=== PATIENT | male | born 1955 ===

== ENCOUNTER 2020-01-12 09:43 | Outpatient (REF) | payer OTHER, SELFPAY ==
[2020-01-12 12:26] LABS: Prostate Specific Antigen Scr 0.86 ng/mL (<0.05-4.0); TSH reflex Free T4 2.54 mIU/mL (0.32-4.0)
[2020-01-12 12:28] LABS: Anion Gap 12 (12-20); Blood Urea Nitrogen 18 mg/dL (9-16); Calcium 9.4 mg/dL (8.4-10.2); Carbon Dioxide 29 mmol/L (22-29); Chloride 102 mmol/L (96-108); Cholesterol 156 mg/dL; Estimated Glomerular Filt Rate > 60; Glucose Fasting 85 mg/dL (60-99); HDL Cholesterol 32 mg/dL; LDL Cholesterol Calculated 95 mg/dl; Potassium 3.9 mmol/l (3.3-5.1); Sodium 139 mmol/L (135-145); Triglycerides 146 mg/dL
== END 2020-01-12 09:44 | disposition home or self-care (01) ==
LOC: HO.HMGCLDS 09:43
PROVIDERS: PCP Nurse Practitioner Family; Visit Provider Nurse Practitioner Family
DX: Z00.00 Encounter for general adult medical examination without abnormal findings (principal); Z12.5 Encounter for screening for malignant neoplasm of prostate
CPT/HCPCS: 80048; 80061; 84153; 84443

== ENCOUNTER → 2020-03-30 10:17 | Outpatient (BNV) | payer MEDICARE, OTHER, SELFPAY | PROVIDERS: PCP Nurse Practitioner Family; Visit Provider Internal Medicine | DX: I26.99 Other pulmonary embolism without acute cor pulmonale (principal) | CPT/HCPCS: 99213; 99214 ==

== ENCOUNTER 2020-04-05 07:52 | Day surgery (SDC) | payer OTHER, SELFPAY ==
[2020-03-30 12:47] VITALS: BMI 38.0
--- NOTE | 2020-04-04 09:34 | P.CONAN_ITS ---
Documented by User: Melita Colorado 04/04/20 12:15 HPI - Anesthesia Eval Consult details Narrative: 64yo M for Colonoscopy Eliquis for h/o PE/CVA PMFSH Past Medical History Medical History Bilateral pulmonary embolism (~05/2019) CVA (cerebral vascular accident) Erectile dysfunction HTN (hypertension) Hyperlipidemia GERARDO (obstructive sleep apnea) Family History Family History Father No problems noted. Mother Afib CAD (coronary artery disease) Surgical History Surgical History H/O colonoscopy History of umbilical hernia repair Hx of tonsillectomy Social History Social History Alcohol intake: current Alcohol intake frequency: a few times a week Smoking Status: Never smoker Second Hand Smoke Exposure: No Use of substances other than those prescribed or required for medical reasons: No Advance Directives: No Advance Directives Information Provided: No Advance Directives on File: No Meds Allergies Allergy/AdvReac Type Severity Reaction Status Date / Time seasonal Allergy Unknown Uncoded 04/04/20 10:02 Home Medications Medication Instructions Recorded Confirmed Type amlodipine 5 mg tablet 5 mg PO DAILY 01/12/20 04/05/20 History fenofibrate micronized 134 mg 134 mg PO DAILY 01/12/20 03/30/20 History capsule lisinopril 40 mg tablet 40 mg PO DAILY 01/12/20 03/30/20 History Exam Exam Date and Time: April 04, 2020 0934 Height,Weight and Vital Signs: Height 5 ft 11 in Weight 123.831 kg Pertinent Lab Results Pertinent Lab Results: Laboratory Tests 12/23/19 01/12/20 09:20 09:50 WBC 6.6 Hgb 14.4 Hct 43.3 Plt Count 219 Sodium 139 Potassium 3.9 Chloride 102 Carbon Dioxide 29 BUN 18 H Creatinine 1.20 Narrative Narrative: EKG 05/2019: NSR @81 ECHO 05/2019: LVEF 60-65%, mild TR Assessment and Plan Assessment Anesthesia Assessment: Chart Reviewed Documented by User: Domingo Valderrama 04/05/20 08:15 [facility] Past Medical History Medical History Bilateral pulmonary embolism (~05/2019) CVA (cerebral vascular accident) Erectile dysfunction HTN (hypertension) Hyperlipidemia GERARDO (obstructive sleep apnea) Family History Family History Father No problems noted. Mother Afib CAD (coronary artery disease) Surgical History Surgical History H/O colonoscopy History of umbilical hernia repair Hx of tonsillectomy Social History Social History Alcohol intake: current Alcohol intake frequency: a few times a week Smoking Status: Never smoker Second Hand Smoke Exposure: No Use of substances other than those prescribed or required for medical reasons: No Advance Directives: No Advance Directives Information Provided: No Advance Directives on File: No Meds Allergies Allergy/AdvReac Type Severity Reaction Status Date / Time seasonal Allergy Unknown Uncoded 04/04/20 10:02 Home Medications Medication Instructions Recorded Confirmed Type amlodipine 5 mg tablet 5 mg PO DAILY 01/12/20 04/05/20 History fenofibrate micronized 134 mg 134 mg PO DAILY 01/12/20 03/30/20 History capsule lisinopril 40 mg tablet 40 mg PO DAILY 01/12/20 03/30/20 History Exam Airway Mallampati Class: III TM Dist: >3cm Neck ROM: Full
[2020-04-04 10:00] VITALS: BMI 38.0
[2020-04-05 08:05] VITALS: BP 121/78; PULSE 69; RESP 16; TEMP 36.6; O2SAT 96
[2020-04-05] MEDS: Lactated Ringers 1,000 ML 100 ML IVCONT (08:17)
[2020-04-05] MEDS: Sodium Phosphate,Mono-Dibasic 133 ML ENEMA PR (08:24)
--- NOTE | 2020-04-05 08:28 | PC.NURSE ---
patient recevied a fleet enema laying on his left side. richy well. yellow output after fleet.
--- NOTE | 2020-04-05 08:56 | MHC.SHP ---
Pre-Procedural Eval Section A The patient is an INPATIENT: No Changes since office visit: Yes Cold of Flu in the past 2 weeks, Yes New Medical Problems, Yes Changes in Medication and Yes Patient answered all questions The History & Physical has been completed within 30 days and I have reviewed it.: Yes Section B Chief Complaint: screening Allergies: Allergies Allergy/AdvReac Type Severity Reaction Status Date / Time seasonal Allergy Unknown Uncoded 04/04/20 10:02 Plan I have reviewed the history and physical and performed a pertinent physical examination on my patient. No changes have occurred unless specified.
[2020-04-05 09:26] VITALS: BP 107/64; PULSE 78; RESP 14; TEMP 36.3; O2SAT 97
--- NOTE | 2020-04-05 09:32 | PM.OP ---
Brief Operative Note Date of Service: 04/05/20 Pre-op diagnosis: FH colon polyps Post-op diagnosis: same Procedure: colonoscopy Surgeon: Phil Sullivan Anesthesia: MAC Estimated blood loss (mL): 0 Pathology: none sent Condition: stable Disposition: PACU
[2020-04-05 09:41] VITALS: BP 101/65; PULSE 71; RESP 18; TEMP 36.2; O2SAT 96
--- NOTE | 2020-04-05 09:52 | OP_ITS ---
SURGEON: Phil Sullivan MD INDICATIONS: Colon cancer screening and family history of colon polyps. PREOPERATIVE DIAGNOSIS: POSTOPERATIVE DIAGNOSIS: PROCEDURE PERFORMED: Colonoscopy to the terminal ileum. ESTIMATED BLOOD LOSS: COMPLICATIONS: ANESTHESIA: ASSISTANTS: SPECIMENS: MEDICATIONS: Monitored anesthesia care. DESCRIPTION OF PROCEDURE: History and physical performed. The risks and benefits of the procedure were explained to the patient. Informed consent was obtained. The patient was placed in the left lateral decubitus position. A digital rectal exam was performed and was found to be normal. The Olympus pediatric video colonoscope was introduced into the rectum and advanced to the cecum without difficulty. The cecum was identified by transillumination, palpation, and identification of ileocecal valve. Examination was performed and the scope was removed. He tolerated the procedure well and was returned to recovery area in stable condition. FINDINGS: The terminal ileum was normal. The visualized colonic mucosa was normal. The quality of prep was good. No polyps were identified. There was mild sigmoid diverticulosis. Retroflexed examination showed small internal hemorrhoids. IMPRESSION: Negative screening colonoscopy. RECOMMENDATION: 1. Follow up as needed. 2. Repeat colonoscopy is recommended in 5 years because of family history. MD STEVENSON [place]/LYNDA / [phone]
--- NOTE | 2020-04-05 10:02 | HO.POSTANES ---
Post Anesthesia Evaluation Post Anesthesia Evaluation Vital Signs: Vital Signs Temp Pulse Resp BP Pulse Ox 04/05/20 09:41 97.2 F 71 18 101/65 96 04/05/20 09:26 97.4 F 78 14 107/64 97 04/05/20 08:05 97.9 F 69 16 121/78 96 Anesthesia: Monitored Mental Status: Awake Pain Control: Satisfactory Nausea/Vomiting: None Hydration: Adequate Anesthesia-Related Issues: No Anes. Related Issues
== END 2020-04-05 10:00 | disposition home or self-care (01) ==
PROVIDERS: PCP Nurse Practitioner Family; Visit Provider Internal Medicine Gastroenterology
PROC: 0DJD8ZZ Inspection of Lower Intestinal Tract, Via Natural or Artificial Opening Endoscopic (ICD-10-PCS; CPT 45378; principal; 2020-04-05 08:50)
DX: Z12.11 Encounter for screening for malignant neoplasm of colon (principal); Z83.71 Family history of colonic polyps; K57.30 Diverticulosis of large intestine without perforation or abscess without bleeding; K64.8 Other hemorrhoids; I10 Essential (primary) hypertension; I26.99 Other pulmonary embolism without acute cor pulmonale; G47.33 Obstructive sleep apnea (adult) (pediatric); Z79.01 Long term (current) use of anticoagulants; Z86.73 Personal history of transient ischemic attack (TIA), and cerebral infarction without residual deficits
CPT/HCPCS: 45378

== ENCOUNTER 2020-07-13 08:34 | Outpatient (REF) | payer OTHER, SELFPAY ==
[2020-07-13 12:08] LABS: Alanine Aminotransferase 32 U/L (0-40); Albumin Level 4.2 g/dL (3.5-5.0); Alkaline Phosphatase 32 U/L (39-117); Anion Gap 14 (12-20); Aspartate Amino Transferase 25 U/L (5-37); Bilirubin Total 0.8 mg/dL (0.0-1.0); Blood Urea Nitrogen 18 mg/dL (9-16); Calcium 9.3 mg/dL (8.4-10.2); Carbon Dioxide 28 mmol/L (22-29); Chloride 102 mmol/L (96-108); Cholesterol 156 mg/dL; Estimated Glomerular Filt Rate > 60; Glucose Fasting 87 mg/dL (60-99); HDL Cholesterol 28 mg/dL; LDL Cholesterol Calculated 93 mg/dl; Potassium 3.7 mmol/L (3.3-5.1); Sodium 140 mmol/L (135-145); Total Protein 6.6 g/dL (6.5-8.0); Triglycerides 178 mg/dL
[2020-07-13 12:30] LABS: TSH reflex Free T4 1.93 uIU/mL (0.32-4.0)
== END 2020-07-13 08:35 | disposition home or self-care (01) ==
LOC: HO.HMGCLDS 08:34
PROVIDERS: PCP Nurse Practitioner Family; Visit Provider Nurse Practitioner Family
DX: E78.5 Hyperlipidemia, unspecified (principal); I10 Essential (primary) hypertension
CPT/HCPCS: 36415; 80053; 80061; 84443

== ENCOUNTER 2021-01-10 09:15 | Outpatient (REF) | payer OTHER, SELFPAY ==
[2021-01-10 12:05] LABS: Appearance Urine CLEAR; Color Urine YELLOW; Glucose Urine UA NEG (NEG); Leukocyte Esterase Urine NEG (NEG); Nitrite Urine NEG (NEG); Specific Gravity - Urine 1.015 (1.005-1.025); Urine Blood NEG (NEG); Urine Ketones NEG (NEG); Urine Protein NEG (NEG-TRACE)
[2021-01-10 12:23] LABS: Prostate Specific Antigen Scr 1.04 ng/mL (<0.05-4.0); TSH reflex Free T4 3.88 uIU/mL (0.32-4.0)
[2021-01-10 12:29] LABS: Alanine Aminotransferase 32 U/L (0-40); Albumin Level 4.3 g/dL (3.5-5.0); Alkaline Phosphatase 32 U/L (39-117); Anion Gap 11 (12-20); Aspartate Amino Transferase 22 U/L (5-37); Bilirubin Total 0.6 mg/dL (0.0-1.0); Blood Urea Nitrogen 18 mg/dL (9-16); Calcium 9.5 mg/dL (8.4-10.2); Carbon Dioxide 29 mmol/L (22-29); Chloride 105 mmol/L (96-108); Cholesterol 155 mg/dL; Estimated Glomerular Filt Rate 58; Glucose Fasting 89 mg/dL (60-99); HDL Cholesterol 29 mg/dL; LDL Cholesterol Calculated 99 mg/dl; Potassium 3.9 mmol/L (3.3-5.1); Sodium 141 mmol/L (135-145); Total Protein 6.7 g/dL (6.5-8.0); Triglycerides 137 mg/dL
== END 2021-01-10 09:16 | disposition home or self-care (01) ==
LOC: HO.HMGCLDS 09:15
PROVIDERS: PCP Nurse Practitioner Family; Visit Provider Nurse Practitioner Family
DX: Z00.00 Encounter for general adult medical examination without abnormal findings (principal); Z12.5 Encounter for screening for malignant neoplasm of prostate
CPT/HCPCS: 36415; 80053; 80061; 81003; 84153; 84443

== ENCOUNTER 2021-02-14 14:40 | Outpatient (REF) | payer OTHER, SELFPAY ==
--- NOTE | ~2021-02-14 | CT_ITS ---
EXAMINATION: CT ANGIOGRAM OF THE CHEST WITH AND WITHOUT CONTRAST (CT PULMONARY ANGIOGRAM FOR PE) CLINICAL INFORMATION: Reason for Exam elevated d dimer . History of pulmonary emboli. COMPARISON: Previous exam most recent May 2019 TECHNIQUE: Prior to contrast administration, noncontrast localization images were obtained. Subsequently, multidetector volumetric imaging was performed from the thoracic inlet to below the diaphragms following the administration of 65 mL Omnipaque 350 intravenous contrast. No contrast reaction reported Sagittal, coronal, and MIP oblique sagittal reformatted images were obtained on the CT workstation, uploaded to PACS, and reviewed. This CT examination was performed using dose optimization techniques as appropriate, variously including the following: *Automated exposure control *Adjustment of mA and/or kV according to patient size (this includes techniques or standardized protocols for targeted exams where dose is matched to indication/reason for exam; i.e. extremities or head) *Use of iterative reconstruction technique Total exam dose-length product 2 0 mGy-cm FINDINGS: QUALITY OF STUDY/CONTRAST BOLUS: Satisfactory. PULMONARY ARTERIES: No central or segmental pulmonary emboli. THORACIC AORTA: No aneurysm or dissection. LUNG: There is a 4 mm right lower lobe nodule axial image 360 series 11. This is not identified on previous chest CT. There multiple bilateral calcified nodules that are stable. The largest measures 4 mm axial image 390 series 11 in the left lower lobe. PLEURA: No pleural effusion or pneumothorax. MEDIASTINUM: Normal heart size. No pericardial effusion. No hilar or mediastinal lymphadenopathy. No evidence of septal bowing or right heart strain. CHEST WALL/AXILLA: No axillary or internal mammary lymphadenopathy. OSSEOUS STRUCTURES: No acute or suspicious osseous abnormality. UPPER ABDOMEN: There may be fatty infiltration of the liver. There is diverticulosis of the colon. No reflux of contrast into the hepatic veins to suggest elevated right heart pressures. CT/CT angio chest PE protocol IMPRESSION: No evidence of pulmonary embolism. Stable calcified left pulmonary nodules. 4 mm noncalcified right lower lobe nodule not Definitely seen on prior CTA January 2020. VTE: negative
[2021-02-14] MEDS: iohexoL 350 MG/ML 100 ML INFUS..BTL 65 ML IV (15:52)
== END 2021-02-14 14:41 | disposition home or self-care (01) ==
LOC: HO.CT 14:40
PROVIDERS: Visit Provider Internal Medicine
DX: I26.99 Other pulmonary embolism without acute cor pulmonale (principal)
CPT/HCPCS: 71275; Q9967

== ENCOUNTER 2021-07-11 09:31 | Outpatient (REF) | payer OTHER, SELFPAY ==
[2021-07-11 11:21] LABS: MANUAL DIFF FLAG NO
[2021-07-11 11:52] LABS: Basophils Absolute Auto 0.1 X10*3/uL (0.0-0.2); Basophils Percent Auto 0.8 % (0-2); Eosinophils Absolute Auto 0.2 X10*3/uL (0.0-0.4); Eosinophils Percent Auto 2.9 % (0-4); Hematocrit 42.1 % (42.0-52.0); Hemoglobin 13.8 g/dl (14.0-18.0); Imm Gran Abs Auto 0.04 X10*3/uL (0.00-0.03); Imm Gran Pct Auto 0.5 % (0.0-0.4); Lymphocytes Absolute Auto 1.7 X10*3/uL (1.2-4.9); Lymphocytes Percent Auto 23.2 % (20-40); Mean Corpuscular HGB Conc 32.8 g/dl (31.0-36.0); Mean Corpuscular Hemoglobin 28.7 pg (27.0-33.0); Mean Corpuscular Volume 87.5 fL (80.0-98.0); Mean Platelet Volume 12.3 fL (9.4-12.4); Monocytes Absolute Auto 0.7 X10*3/uL (0.1-1.2); Monocytes Percent Auto 9.1 % (2-11); Neutrophils Absolute Auto 4.8 x10*3/uL (2.0-8.3); Neutrophils Percent Auto 63.5 % (45-73); Platelet Count 217 X10*3/uL (160-400); Red Blood Count 4.81 X10*6/uL (4.60-5.80); Red Cell Distribution Width 12.9 % (11.0-16.0); White Blood Count 7.5 X10*3/uL (4.8-10.8)
[2021-07-11 12:08] LABS: Alanine Aminotransferase 31 U/L (0-40); Albumin Level 4.1 g/dL (3.5-5.0); Alkaline Phosphatase 30 U/L (39-117); Anion Gap 13 (12-20); Aspartate Amino Transferase 24 U/L (5-37); Bilirubin Total 0.6 mg/dL (0.0-1.0); Blood Urea Nitrogen 19 mg/dL (9-16); Calcium 9.5 mg/dL (8.4-10.2); Carbon Dioxide 25 mmol/L (22-29); Chloride 105 mmol/L (96-108); Cholesterol 148 mg/dL; Estimated Glomerular Filt Rate > 60; Glucose Fasting 92 mg/dL (60-99); HDL Cholesterol 30 mg/dL; LDL Cholesterol Calculated 97 mg/dl; Potassium 3.8 mmol/L (3.3-5.1); Sodium 139 mmol/L (135-145); Total Protein 6.7 g/dL (6.5-8.0); Triglycerides 106 mg/dL
[2021-07-11 12:12] LABS: Appearance Urine CLEAR; Color Urine YELLOW; Glucose Urine UA NEG (NEG); Leukocyte Esterase Urine NEG (NEG); Nitrite Urine NEG (NEG); PH 6.5 (5.0-8.0); Urine Blood NEG (NEG); Urine Ketones NEG (NEG); Urine Protein NEG (NEG-TRACE)
[2021-07-11 12:17] LABS: TSH reflex Free T4 2.93 uIU/mL (0.32-4.0)
== END 2021-07-11 09:32 | disposition home or self-care (01) ==
LOC: HO.HMGCLDS 09:31
PROVIDERS: Visit Provider Nurse Practitioner Family
DX: I10 Essential (primary) hypertension (principal)
CPT/HCPCS: 36415; 80053; 80061; 81003; 84443; 85025

== ENCOUNTER 2022-01-13 08:28 | Outpatient (REF) | payer MEDICARE, OTHER, SELFPAY ==
[2022-01-13 09:03] LABS: MANUAL DIFF FLAG NO
[2022-01-13 09:50] LABS: Basophils Absolute Auto 0.1 X10*3/uL (0.0-0.2); Basophils Percent Auto 1.1 % (0-2); Eosinophils Absolute Auto 0.2 X10*3/uL (0.0-0.4); Eosinophils Percent Auto 2.9 % (0-4); Hematocrit 42.3 % (42.0-52.0); Hemoglobin 13.8 g/dl (14.0-18.0); Imm Gran Abs Auto 0.02 X10*3/uL (0.00-0.03); Imm Gran Pct Auto 0.4 % (0.0-0.4); Lymphocytes Absolute Auto 1.8 X10*3/uL (1.2-4.9); Lymphocytes Percent Auto 31.5 % (20-40); Mean Corpuscular HGB Conc 32.6 g/dl (31.0-36.0); Mean Corpuscular Hemoglobin 28.9 pg (27.0-33.0); Mean Corpuscular Volume 88.5 fL (80.0-98.0); Mean Platelet Volume 12.1 fL (9.4-12.4); Monocytes Absolute Auto 0.5 X10*3/uL (0.1-1.2); Monocytes Percent Auto 9.5 % (2-11); Neutrophils Absolute Auto 3.1 x10*3/uL (2.0-8.3); Neutrophils Percent Auto 54.6 % (45-73); Platelet Count 220 X10*3/uL (160-400); Red Blood Count 4.78 X10*6/uL (4.60-5.80); Red Cell Distribution Width 12.6 % (11.0-16.0); White Blood Count 5.6 X10*3/uL (4.8-10.8)
[2022-01-13 10:22] LABS: Alanine Aminotransferase 31 U/L (0-40); Albumin Level 4.2 g/dL (3.5-5.0); Alkaline Phosphatase 34 U/L (39-117); Anion Gap 14 (12-20); Aspartate Amino Transferase 24 U/L (5-37); Bilirubin Total 0.7 mg/dL (0.0-1.0); Blood Urea Nitrogen 20 mg/dL (9-16); Calcium 9.6 mg/dL (8.4-10.2); Carbon Dioxide 27 mmol/L (22-29); Chloride 103 mmol/L (96-108); Cholesterol 151 mg/dL; Estimated Glomerular Filt Rate > 60; Glucose Fasting 89 mg/dL (60-99); HDL Cholesterol 33 mg/dL; LDL Cholesterol Calculated 96 mg/dl; Sodium 140 mmol/L (135-145); Total Protein 6.6 g/dL (6.5-8.0); Triglycerides 110 mg/dL
[2022-01-13 10:30] LABS: Appearance Urine Clear; Color Urine Yellow; Glucose Urine UA Negative (Negative); Leukocyte Esterase Urine Trace (Negative); Nitrite Urine Negative (Negative); PH 6.5 (5.0-9.0); UMIC TRIGGER UACC YES; Urine Blood Negative (Negative); Urine Ketones Negative (Negative); Urine Protein Negative (Neg-Trace)
[2022-01-13 10:37] LABS: Bacteria Urine None Seen (None Seen); Hyaline Casts Urine 0-2 /LPF (0-2); RBC Urine 0-2 /HPF (0-2); Squamous Epithelial Cell Urine 0-2 /HPF (0-2); WBC Urine 0-5 /HPF (0-5)
[2022-01-13 10:46] LABS: TSH reflex Free T4 1.96 uIU/mL (0.32-4.0)
[2022-01-13 10:56] LABS: Folate 17.9 ng/mL (> or = 4.0); Vitamin B12 517 pg/mL (200-900)
== END 2022-01-13 08:29 | disposition home or self-care (01) ==
LOC: HO.LAB 08:28
PROVIDERS: PCP Nurse Practitioner Family; Visit Provider Nurse Practitioner Family
DX: I10 Essential (primary) hypertension (principal); G57.90 Unspecified mononeuropathy of unspecified lower limb
CPT/HCPCS: 36415; 80053; 80061; 81001; 82607; 82746; 84207; 84443; 85025

== ENCOUNTER 2022-04-30 08:48 | Outpatient (REF) | payer MEDICARE, OTHER, SELFPAY ==
[2022-04-30 11:18] LABS: MANUAL DIFF FLAG NO
[2022-04-30 11:41] LABS: Basophils Absolute Auto 0.1 X10*3/uL (0.0-0.2); Basophils Percent Auto 1.1 % (0-2); Eosinophils Absolute Auto 0.2 X10*3/uL (0.0-0.4); Eosinophils Percent Auto 3.9 % (0-4); Hematocrit 41.6 % (42.0-52.0); Hemoglobin 13.7 g/dl (14.0-18.0); Imm Gran Abs Auto 0.04 X10*3/uL (0.00-0.03); Imm Gran Pct Auto 0.7 % (0.0-0.4); Lymphocytes Absolute Auto 1.6 X10*3/uL (1.2-4.9); Lymphocytes Percent Auto 29.1 % (20-40); Mean Corpuscular HGB Conc 32.9 g/dl (31.0-36.0); Mean Corpuscular Hemoglobin 28.8 pg (27.0-33.0); Mean Corpuscular Volume 87.6 fL (80.0-98.0); Mean Platelet Volume 12.4 fL (9.4-12.4); Monocytes Absolute Auto 0.5 X10*3/uL (0.1-1.2); Monocytes Percent Auto 8.9 % (2-11); Neutrophils Absolute Auto 3.2 x10*3/uL (2.0-8.3); Neutrophils Percent Auto 56.3 % (45-73); Platelet Count 202 X10*3/uL (160-400); Red Blood Count 4.75 X10*6/uL (4.60-5.80); Red Cell Distribution Width 12.8 % (11.0-16.0); White Blood Count 5.6 X10*3/uL (4.8-10.8)
[2022-04-30 12:05] LABS: Alanine Aminotransferase 26 U/L (0-40); Albumin Level 4.1 g/dL (3.5-5.0); Alkaline Phosphatase 32 U/L (39-117); Anion Gap 9 (12-20); Aspartate Amino Transferase 19 U/L (5-37); Bilirubin Total 0.7 mg/dL (0.0-1.0); Blood Urea Nitrogen 18 mg/dL (9-16); Calcium 9.3 mg/dL (8.4-10.2); Carbon Dioxide 31 mmol/L (22-29); Chloride 106 mmol/L (96-108); Cholesterol 157 mg/dL; Estimated Glomerular Filt Rate > 60; Glucose Fasting 91 mg/dL (60-99); HDL Cholesterol 29 mg/dL; LDL Cholesterol Calculated 100 mg/dl; Potassium 3.8 mmol/L (3.3-5.1); Sodium 142 mmol/L (135-145); Total Protein 6.3 g/dL (6.5-8.0); Triglycerides 140 mg/dL
[2022-04-30 12:13] LABS: Appearance Urine Clear; Color Urine Yellow; Glucose Urine UA Negative (Negative); Leukocyte Esterase Urine Trace (Negative); Nitrite Urine Negative (Negative); Specific Gravity - Urine 1.025 (1.005-1.025); UMIC TRIGGER UACC YES; Urine Blood Negative (Negative); Urine Ketones Negative (Negative); Urine Protein Negative (Neg-Trace)
[2022-04-30 12:18] LABS: Bacteria Urine None Seen (None Seen); Hyaline Casts Urine 0-2 /LPF (0-2); RBC Urine 0-2 /HPF (0-2); Squamous Epithelial Cell Urine 0-2 /HPF (0-2); WBC Urine 0-5 /HPF (0-5)
[2022-04-30 12:29] LABS: Prostate Specific Antigen Scr 0.81 ng/mL (<0.05-4.0); TSH reflex Free T4 2.83 uIU/mL (0.32-4.0); Vitamin D 25-OH Total 19.5 ng/mL (>30)
== END 2022-04-30 08:49 | disposition home or self-care (01) ==
LOC: HO.HMGCLDS 08:48
PROVIDERS: PCP Nurse Practitioner Family; Visit Provider Nurse Practitioner Family
DX: Z00.00 Encounter for general adult medical examination without abnormal findings (principal); Z12.5 Encounter for screening for malignant neoplasm of prostate
CPT/HCPCS: 36415; 80053; 80061; 81001; 81003; 82306; 84153; 84443; 85025

== ENCOUNTER 2022-10-29 08:44 | Outpatient (AMB) | payer MEDICARE, OTHER, SELFPAY ==
[2022-10-29 08:46] VITALS: BP 110/68; PULSE 70; O2SAT 97; BMI 38.9
--- NOTE | 2022-10-29 08:46 | A.OFFPC_ITS ---
Vital Signs 10/29/22 08:46 Height 5 ft 10 in Weight 271 lb BMI 38.9 BP 110/68 Blood Pressure Location Rt brachial Position Sitting Pulse 70 Pulse Source Pulse Oximeter Pulse Oximetry (%) 97 Oxygen Delivery Method Room Air Intake Visit Reasons: 6 month follow up HTN Allergies seasonal Allergy (Uncoded 10/29/22 08:48) Unknown Medication List - Last Reconciled 10/29/22 by ADI Carlin apixaban (Eliquis) 5 mg PO BID fenofibrate micronized 134 mg PO DAILY hydrochlorothiazide 50 mg PO QAM lisinopril 40 mg PO DAILY simvastatin 20 mg PO BEDTIME Tobacco use date assessed: 10/29/22 Fall risk assessment: No Falls in past year Last assessed Fall Risk: 10/29/22 Dental Screening Dental Screen Date: 10/29/22 Did you have a dental visit in the last 12 months?: Yes Did you have a dental problem in the last 6 months where you did not have access to dental care?: No Was dental information given to patient?: Patient has dentist HPI 6 month follow up HTN HPI Details HTN: Blood pressure is stable, managed with hydrochlorothiazide 50mg and lisinopril 40mg. Denies chest pain, shortness of breath, headache, dizziness, and blurred vision. Dyslipidemia: On fenofibrate 134mg and simvastatin 20mg. Hx of vitamin D deficiency. Will order labs. [facility] Medical History Bilateral pulmonary embolism (~05/2019) CVA (cerebral vascular accident) Erectile dysfunction HTN (hypertension) Hyperlipidemia GERARDO (obstructive sleep apnea) Surgical History H/O colonoscopy History of umbilical hernia repair Hx of tonsillectomy Family History Father No problems noted. 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 Dieudonne Alonso, Bev Vu, Julien Schofield and colleagues, with an educational luciano from [employer]. Review of Systems Const Reports as per HPI Physical exam (Primary Care) Vital Signs: Last Vital Signs Pulse 70 10/29/22 08:46 BP 110/68 10/29/22 08:46 Pulse Ox 97 10/29/22 08:46 Oxygen Delivery Method Room Air 10/29/22 08:46 BMI result Body Mass Index 38.9 Tobacco/Smoking Status: Tobacco use Status Tobacco use date assessed 10/29/22 10/29/22 08:52 Patient Tobacco Use Status Never used Tobacco 10/29/22 08:47 e-Cigarette/Vaping Use Never Used 10/29/22 08:47 Thrive Assessment: Date of Thrive Assessment Date Thrive assessed 04/30/22 10/29/22 08:47 Const General: cooperative Nutritional Appearance: obese Orientation/consciousness: patient oriented x3 Resp Effort & Inspection: normal respiratory effort Auscultation: clear to auscultation bilaterally Cardio Rate: regular rate Rhythm: regular rhythm Heart sounds: S1 normal heart sound present and S2 normal heart sound present Neuro General: patient oriented x3 Extrem Right lower extremity: edema (trace) Left lower extremity: edema (trace) Psych Appearance: grossly normal Mental Status: mental status grossly normal Speech and movement: Normal speech and movement present Affect: normal affect Attitude: cooperative Thought process: Normal thought process present Thought content: Normal thought content present Insight: Good insight present (Psych) Judgement: Good judgement present (Psych) Assessment and Plan Assessment & Plan (1) HTN (hypertension): Code(s): I10 - Essential (primary) hypertension Plan: Labs ordered (2) Hyperlipidemia: Code(s): E78.5 - Hyperlipidemia, unspecified Plan: Labs ordered (3) Vitamin D deficiency: Code(s): E55.9 - Vitamin D deficiency, unspecified Plan: Labs ordered Plan The patient agreed to the use of a medical office representative for this encounter. Scribed for ADI Alcaraz by Selma Atkins medical office representative, on 10/29/2022 at 09:05 EST. Orders: Orders Comprehensive Desdemona. Panel Fast Today E78.5 - Hyperlipidemia, unspecified, I10 - Essential (primary) hypertension Lipid Panel Today E78.5 - Hyperlipidemia, unspecified, I10 - Essential (primary) hypertension TSH reflex Free T4 Today E78.5 - Hyperlipidemia, unspecified, I10 - Essential (primary) hypertension Complete Blood Count Auto Diff Today E78.5 - Hyperlipidemia, unspecified, I10 - Essential (primary) hypertension UA CC w/rflx Micro + Cult Today E78.5 - Hyperlipidemia, unspecified, I10 - Essential (primary) hypertension Vitamin D 25-OH Total Today E55.9 - Vitamin D deficiency, unspecified Coding Level of Care Code Est Pt Level 3 (75490) Diagnoses HTN (hypertension) I10 Hyperlipidemia E78.5 Vitamin D deficiency E55.9
== END 2022-10-29 09:15 | disposition home or self-care (01) ==
PROVIDERS: Visit Provider Nurse Practitioner Family
DX: I10 Essential (primary) hypertension (principal); E78.5 Hyperlipidemia, unspecified; E55.9 Vitamin D deficiency, unspecified
CPT/HCPCS: 99213

== ENCOUNTER 2022-10-29 09:16 | Outpatient (REF) | payer MEDICARE, OTHER, SELFPAY ==
[2022-10-29 11:19] LABS: MANUAL DIFF FLAG NO
[2022-10-29 11:26] LABS: Appearance Urine Clear; Color Urine Yellow; Glucose Urine UA Negative (Negative); Leukocyte Esterase Urine Trace (Negative); Nitrite Urine Negative (Negative); PH 7.5 (5.0-9.0); Specific Gravity - Urine 1.025 (1.005-1.025); UMIC TRIGGER UACC YES; Urine Blood Negative (Negative); Urine Ketones Trace mg/dL (Negative); Urine Protein Negative (Neg-Trace)
[2022-10-29 11:29] LABS: Bacteria Urine None Seen (None Seen); Hyaline Casts Urine 0-2 /LPF (0-2); Squamous Epithelial Cell Urine 0-2 /HPF (0-2); WBC Urine 0-5 /HPF (0-5)
[2022-10-29 11:48] LABS: Basophils Absolute Auto 0.1 X10*3/uL (0.0-0.2); Basophils Percent Auto 1.2 % (0-2); Eosinophils Absolute Auto 0.2 X10*3/uL (0.0-0.4); Eosinophils Percent Auto 3.7 % (0-4); Hematocrit 42.5 % (42.0-52.0); Hemoglobin 13.9 g/dl (14.0-18.0); Imm Gran Abs Auto 0.05 X10*3/uL (0.00-0.03); Imm Gran Pct Auto 0.8 % (0.0-0.4); Lymphocytes Absolute Auto 1.9 X10*3/uL (1.2-4.9); Lymphocytes Percent Auto 28.8 % (20-40); Mean Corpuscular HGB Conc 32.7 g/dl (31.0-36.0); Mean Corpuscular Hemoglobin 28.7 pg (27.0-33.0); Mean Corpuscular Volume 87.6 fL (80.0-98.0); Mean Platelet Volume 12.1 fL (9.4-12.4); Monocytes Absolute Auto 0.6 X10*3/uL (0.1-1.2); Monocytes Percent Auto 8.7 % (2-11); Neutrophils Absolute Auto 3.7 x10*3/uL (2.0-8.3); Neutrophils Percent Auto 56.8 % (45-73); Platelet Count 227 X10*3/uL (160-400); Red Blood Count 4.85 X10*6/uL (4.60-5.80); Red Cell Distribution Width 12.7 % (11.0-16.0); White Blood Count 6.4 X10*3/uL (4.8-10.8)
[2022-10-29 12:43] LABS: Alanine Aminotransferase 25 U/L (0-40); Albumin Level 3.9 g/dL (3.5-5.0); Alkaline Phosphatase 32 U/L (39-117); Anion Gap 13 (12-20); Aspartate Amino Transferase 19 U/L (5-37); Bilirubin Total 0.5 mg/dL (0.0-1.0); Blood Urea Nitrogen 19 mg/dL (9-16); Calcium 9.5 mg/dL (8.4-10.2); Carbon Dioxide 24 mmol/L (22-29); Chloride 108 mmol/L (96-108); Cholesterol 161 mg/dL; Estimated Glomerular Filt Rate > 60; Glucose Fasting 92 mg/dL (60-99); HDL Cholesterol 28 mg/dL; LDL Cholesterol Calculated 102 mg/dl; Potassium 3.7 mmol/L (3.3-5.1); Sodium 141 mmol/L (135-145); Total Protein 6.7 g/dL (6.5-8.0); Triglycerides 158 mg/dL
[2022-10-29 12:44] LABS: TSH reflex Free T4 3.31 uIU/mL (0.32-4.0); Vitamin D 25-OH Total 51.7 ng/mL (>30)
== END 2022-10-29 09:17 | disposition home or self-care (01) ==
LOC: HO.HMGCLDS 09:16
PROVIDERS: PCP Nurse Practitioner Family; Visit Provider Nurse Practitioner Family
DX: I10 Essential (primary) hypertension (principal); E55.9 Vitamin D deficiency, unspecified; E78.5 Hyperlipidemia, unspecified
CPT/HCPCS: 36415; 80053; 80061; 81001; 82306; 84443; 85025

== ENCOUNTER 2022-11-02 09:28 | Outpatient (REF) | payer MEDICARE, OTHER, SELFPAY ==
[2022-11-02 11:25] LABS: Urine Cytology See Pathology rpt
[2022-11-02 12:01] LABS: Appearance Urine Clear; Color Urine Yellow; Glucose Urine UA Negative (Negative); Leukocyte Esterase Urine Negative (Negative); Nitrite Urine Negative (Negative); PH 7.5 (5.0-9.0); Specific Gravity - Urine <= 1.005 (1.005-1.025); Urine Blood Negative (Negative); Urine Ketones Negative (Negative); Urine Protein Negative (Neg-Trace)
== END 2022-11-02 09:29 | disposition home or self-care (01) ==
LOC: HO.HMGCLDS 09:28
PROVIDERS: PCP Nurse Practitioner Family; Visit Provider Nurse Practitioner Family
DX: I10 Essential (primary) hypertension (principal); R31.29 Other microscopic hematuria; E78.5 Hyperlipidemia, unspecified
CPT/HCPCS: 81003; 88112

== ENCOUNTER 2022-12-06 15:14 | Outpatient (REF) | payer MEDICARE, OTHER, SELFPAY ==
[2022-12-06 16:36] LABS: Urine Cytology See Pathology rpt
== END 2022-12-06 15:15 | disposition home or self-care (01) ==
LOC: HO.LAB 15:14
PROVIDERS: PCP Nurse Practitioner Family; Referring Provider Nurse Practitioner Family; Visit Provider Urology
DX: R82.89 Other abnormal findings on cytological and histological examination of urine (principal); R31.29 Other microscopic hematuria
CPT/HCPCS: 51798; 81003; 88112

== ENCOUNTER 2022-12-06 15:14 | Outpatient (AMB) | payer MEDICARE, OTHER, SELFPAY ==
--- NOTE | 2022-12-06 15:16 | A.OFFVIS_ITS ---
Intake Intake Visit Reasons: microscopic hematuria/findings on cytological Intake Note: NEW Patient presents today to established treatment for Microscopic Hematuria/Findings on Cytological: Meds- None Allergies to Antibiotic- No Known Allergies Blood Thinner- Eliquis Allergies seasonal Allergy (Uncoded 12/06/22 15:38) Unknown HPI HPI Comments History of Present Illness Details Walter is a 67-year-old male who presents today to the office to establish as a new patient for an evaluation of microscopic hematuria. 12/06/2022? He presents today for an evaluation of microscopic hematuria. PMH CVA, PE on eliquis, Htn, GERARDO. I reviewed the urine cytology report from 11/02/2022 which revealed a few degenerated atypical urothelial cells. He states that he is doing well. He denies any urinary symptoms at this time. He states that he gets up 1 time at night at night to urinate. Evaluation today?UA? leukocytes: negative; blood: negative. Plan: CT urogram was ordered. Follow-up office Cystoscopy in 6 weeks. [facility] Medical History Bilateral pulmonary embolism (~05/2019) CVA (cerebral vascular accident) Erectile dysfunction HTN (hypertension) Hyperlipidemia GERARDO (obstructive sleep apnea) Surgical History H/O colonoscopy History of umbilical hernia repair Hx of tonsillectomy Family History Father No problems noted. 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 Cognitive needs: No Hearing needs: No Vision needs: No Review of Systems Const All systems reviewed & are unremarkable except as noted in HPI and below Reports no additional complaints Eyes Reports no additional complaints ENT Reports no additional complaints Card Denies dyspnea Resp Denies cough and Denies dyspnea GI Reports no additional complaints Musc Reports no additional complaints Skin/Breast Denies rash and Denies unusual bruising Neuro Reports no additional complaints Psych Reports no additional complaints Endo Reports no additional complaints Teodoro/Lymph Reports no additional complaints Aller/Immun Reports no additional complaints Physical Exam Const General: healthy appearing, no acute distress and well developed Orientation/consciousness: patient oriented x3 HEENT Head: Yes normocephalic and Yes atraumatic Eyes Conjunctivae: conjunctivae normal Neck Neck: Yes normal visual inspection Chest Chest palpation & inspection: normal inspection of the chest Resp Effort & Inspection: normal respiratory effort Cardio Rate: regular rate GI Inspection: Yes normal to inspection Skin General skin exam: no rashes or lesions noted Neuro General: patient oriented x3 Extrem General: No pedal edema Psych Appearance: grossly normal Affect: normal affect Office Procedures Post Void Residual Post Residual Void Post Void Residual (PVR): 0 [id number] Void Residual by ultrasound Results AMB Urinalysis, Automated UA Leukoctes 0 Kulwant/uL Last Edit by Lurdes Leroy [facility] on 12/06/22 15:44 UA Nitrite Negative Last Edit by Lurdes Leroy [facility] on 12/06/22 15:44 UA Urobilinogen 0.2 mg/dL Last Edit by Lurdes Leroy [facility] on 12/06/22 15:4 4 UA Protein 0 mg/dL Last Edit by Lurdes Leroy [facility] on 12/06/22 15:44 UA pH 6.5 Last Edit by Lurdes Leroy [facility] on 12/06/22 15:44 UA Blood 0 Rosas/uL Last Edit by Lurdes Leroy [facility] on 12/06/22 15:44 UA Specific [place] 1.015 Last Edit by Lurdes Leroy [facility] on 12/06/22 15: 44 UA Ketone Negative Last Edit by Lurdes Leroy [facility] on 12/06/22 15:44 UA Bilirubin 0 mg/dL Last Edit by Lurdes Leroy [facility] on 12/06/22 15:44 UA Glucose 0 mg/dL Last Edit by Lurdes Leroy [facility] on 12/06/22 15:44 Results Reviewed Results Reviewed: Laboratory Last Values Urine pH (Auto) 6.5 12/06/22 15:40 Specific [place] (Auto) 1.015 12/06/22 15:40 Urine Protein (Auto) 0 mg/dL 12/06/22 15:40 Glucose (UA)(Auto) 0 mg/dL 12/06/22 15:40 Urine Ketones (Auto) Negative 12/06/22 15:40 Urine Blood (Auto) 0 Rosas/uL 12/06/22 15:40 Urine Nitrite (Auto) Negative 12/06/22 15:40 Urine Bilirubin (Auto) 0 mg/dL 12/06/22 15:40 Urine Urobilinogen (Auto) 0.2 mg/dL 12/06/22 15:40 Leukocyte Esterase (Auto) 0 Kulwant/uL 12/06/22 15:40 Diagnosis Urine: Few degenerated atypical urothelial cells. COMMENT: Examination of a monolayer preparation slide shows scattered benign urothelial cells, few benign squamous cells, and few groups of atypical but degenerated urothelial cells within increased nuclear:cytoplasmic ratios meeting the criteria for atypia. There are also scattered inflammatory cells and red blood cells. Clinical History Other microscopic hematuria Material Received Urine Gross Description 40cc clear yellow fluid Assessment & Plan Assessment & Plan (1) Abnormal urine cytology: Code(s): R82.89 - Other abnormal findings on cytological and histological examination of urine (2) Microscopic hematuria: Code(s): R31.29 - Other microscopic hematuria Plan CT urogram was ordered. Follow-up office Cystoscopy in 6 weeks. Orders: Orders AMB Post Void Residual by ultrasound 12/06/22 Z12.5 - Encounter for screening for malignant neoplasm of prostate AMB Urinalysis Automated 12/06/22 Z13.9 - Encounter for screening, unspecified Urine Cytology 12/06/22 R82.89 - Other abnormal findings on cytological and histological examination of urine Patient Instructions: The patient had an opportunity to ask questions regarding treatment plan. All questions were answered. Imaging, Laboratory studies and physical exam results were discussed and reviewed in detail. No major barriers to understanding were identified. The patient expressed understanding and agreement with the above treatment plan.? ? ? The patient is aware they should contact our office by phone for worsening of their current condition or the appearance of new symptoms. Compliance is encouraged with any medications and followup testing that is ordered.? ? ? It is a privilege to be allowed the opportunity to participate in the urologic care of your patient. If you have any questions or concerns regarding treatment for the above conditions please do not hesitate to contact me. The office telephone contact is [phone].? ? ? This note is constructed in part using voice recognition software. While every effort has been made to ensure accuracy sales stock associate errors may have been included.? ? ? Yours sincerely,? ? ? Violeta Delgado MD? ? Coding Level of Care Code New Pt Level 4 (56494) Diagnoses Abnormal urine cytology R82.89 Microscopic hematuria R31.29 CPT Codes Post Residual Void - PVR CPT Code: 71915-Ttwy Void Residual by ultrasound ([id number])
== END 2022-12-06 16:05 | disposition home or self-care (01) ==
PROVIDERS: PCP Nurse Practitioner Family; Referring Provider Nurse Practitioner Family; Visit Provider Urology
DX: R82.89 Other abnormal findings on cytological and histological examination of urine (principal); R31.29 Other microscopic hematuria
CPT/HCPCS: 99204

== ENCOUNTER 2023-01-28 09:29 | Outpatient (REF) | payer MEDICARE, OTHER, SELFPAY ==
[2023-01-28 10:45] LABS: Blood Urea Nitrogen 16 mg/dL (9-16); Estimated Glomerular Filt Rate > 60
== END 2023-01-28 09:30 | disposition home or self-care (01) ==
LOC: HO.LAB 09:29
PROVIDERS: PCP Nurse Practitioner Family; Visit Provider Urology
DX: R31.29 Other microscopic hematuria (principal); R82.89 Other abnormal findings on cytological and histological examination of urine
CPT/HCPCS: 36415; 82565; 84520

== ENCOUNTER 2023-01-29 08:37 | Outpatient (REF) | payer MEDICARE, OTHER, SELFPAY ==
--- NOTE | ~2023-01-29 | CT_ITS ---
EXAMINATION: CT ABDOMEN AND PELVIS WITHOUT AND WITH CONTRAST CLINICAL INFORMATION: Hematuria. COMPARISON: CT abdomen and pelvis 06/26/2019 TECHNIQUE: Noncontrast CT of the abdomen and pelvis is performed followed by split bolus contrast-enhanced images using 85 mL Omnipaque 350 contrast.? Postcontrast imaging is performed during the combined nephrogram and excretion phase. Sagittal and coronal reformatted images were obtained on the technologist's workstation for both the precontrast and postcontrast phases. This CT examination was performed using dose optimization techniques as appropriate, variously including the following: *Automated exposure control *Adjustment of mA and/or kV according to patient size (this includes techniques or standardized protocols for targeted exams where dose is matched to indication/reason for exam; i.e. extremities or head) *Use of iterative reconstruction technique DLP: 1474 mGy-cm FINDINGS: LUNG BASES: Calcified granuloma right middle lobe. No follow-up imaging is recommended as per Fleischner Society guidelines. LIVER, GALLBLADDER, AND BILIARY TREE: Hepatic steatosis. No discrete mass. No ductal dilatation. The gallbladder is unremarkable with no evidence of radiopaque gallstones, gallbladder wall thickening, or obvious pericholecystic inflammatory changes. PANCREAS: No discrete pancreatic mass. No ductal dilatation. SPLEEN: Normal; no mass ADRENAL GLANDS: Normal; no mass. KIDNEYS AND URETERS: No nephrolithiasis on noncontrast imaging. Symmetric nephrograms. There are multiple tiny cortical hypodensities in both kidneys that are too small to characterize but most likely cysts. No follow-up imaging is recommended. Additionally there is a 3.1 cm simple cyst in the lower pole left kidney. No follow-up imaging is recommended. Symmetric urinary excretion of contrast. No hydroureteronephrosis. No filling defects in the collecting system BLADDER: No bladder calculus. No discrete bladder mass. The bladder base is deformed by the prostate. GASTROINTESTINAL TRACT: The small bowel is normal in caliber. The appendix is normal. Moderate sigmoid diverticulosis without evidence of diverticulitis. ABDOMINAL WALL: No significant hernia is appreciated. LYMPH NODES: No lymphadenopathy. VASCULAR: Mild atherosclerosis. No aortic aneurysm PELVIC VISCERA: The prostate measures 4.3 x 4.0 x 5.1 cm approximately 44 mL. OSSEUS STRUCTURES: Bilateral pars defects at L5 with grade 1 anterolisthesis and severe degenerative disc disease at L5-S1. CT/CT urogram IMPRESSION: No nephrolithiasis. No suspicious renal mass. Normal CT urogram. Enlarged prostate.
[2023-01-29] MEDS: iohexoL 350 MG/ML 75 ML INFUS..BTL 85 ML IV (09:41)
== END 2023-01-29 08:38 | disposition home or self-care (01) ==
LOC: HO.CT 08:37
PROVIDERS: PCP Nurse Practitioner Family; Visit Provider Urology
DX: R31.9 Hematuria, unspecified (principal)
CPT/HCPCS: 74178; Q9967

== ENCOUNTER 2023-01-31 08:19 | Outpatient (AMB) | payer MEDICARE, OTHER, SELFPAY ==
--- NOTE | 2023-01-31 08:23 | A.OFFVIS_ITS ---
Intake Intake Visit Reasons: 6w/cysto/CT Intake Note: Patient presents today for a CYSTOSCOPY Procedure: CT completed on 01/29/2023 Meds: Cipro & Naproxen Allergies to Antibiotic: No Known Allergies Blood Thinner: Eliquis Urinalysis test cleared for Cysto Disposable Uro-G Cystoscope Cannula: Lot: [id number] Exp: 08/01/2024 Assistant Professor Of Archaeology Required: No Accompanied by: Self / Same As Patient Allergies seasonal Allergy (Uncoded 01/31/23 08:34) Unknown Medication List - Last Reconciled 01/31/23 by Violeta Delgado MD alfuzosin ER 10 mg PO DAILY apixaban (Eliquis) 2.5 mg PO BID fenofibrate micronized 134 mg PO DAILY hydrochlorothiazide 50 mg PO QAM lisinopril 40 mg PO DAILY simvastatin 20 mg PO BEDTIME HPI HPI Comments History of Present Illness Details Walter is a 67-year-old male who presents today to the office for a follow-up. 01/31/2023? He is followed today for a Cystoscopy procedure. PMH CVA, PE on eliquis, Htn, GERADRO. He was last seen by me on 12/06/2022 for microscopic hematuria and atypical urothelial cells.. CT urogram was ordered, and he was advised to follow-up office Cystoscopy. I reviewed cytology report from 12/07/2022 revealed negative for high-grade urothelial caracinoma. I reviewed PSA results from 04/30/2022 revealed 0.81 ng/mL. I reviewed the images of CT urogram performed on 01/29/2023, radiologist airport operations manager is pending. 01/31/2023: Evaluation today: Cystoscopy procedure: Consent was obtained for cystoscopy procedure. Cystoscopy findings: Prostate enlarged with a obstructive median. No suspicious bladder lesions noted. ?UA? Leukocytes: negative; blood: negative. Review of chart: Lab data: urine cytology report from 11/02/2022 which revealed a few degenerated atypical urothelial cells. 01/31/2023: Plan: Enlarged prostate. I will start him on an alpha-rui. Once CT scan airport operations manager available we will review with the patient Followup in 3 months. [facility] Medical History CVA (cerebral vascular accident) HTN (hypertension) Erectile dysfunction Bilateral pulmonary embolism (~05/2019) GERARDO (obstructive sleep apnea) Hyperlipidemia Surgical History Hx of cystoscopy H/O surgical biopsy (~01/24/23) Hx of tonsillectomy H/O colonoscopy History of umbilical hernia repair Family History Father No problems noted. 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 Cognitive needs: No Hearing needs: No Vision needs: No Review of Systems Const All systems reviewed & are unremarkable except as noted in HPI and below Reports no additional complaints Eyes Reports no additional complaints ENT Reports no additional complaints Card Denies dyspnea Resp Denies cough and Denies dyspnea GI Reports no additional complaints Musc Reports no additional complaints Skin/Breast Denies rash and Denies unusual bruising Neuro Reports no additional complaints Psych Reports no additional complaints Endo Reports no additional complaints Teodoro/Lymph Reports no additional complaints Aller/Immun Reports no additional complaints Office Procedures Cystoscopy Consent Discussed risk and benefit or proposed procedure with the patient. Information consent for procedure given to the patient. Discussed technical aspects, risks, benefits and alternatives in full. Addressed all of the patient's questions and concerns regarding the procedure. The patient demonstrated knowledge and understanding. They wish to proceed with this procedure. Preparation The patient was prepped in the usual manner. A refinery pipeline operator was present and in the room. Genitalia was prepped with betadine solution in a sterile manner. Lidocaine Jelly 2% was placed into the urethra and 16Fr flexible Olympus cystoscope was inserted into the meatus after adequate lubrication. Procedure Time out per protocol performed. Bladder Inspection Bladder Inspection: The bladder was inspected in its entirety with utilization retroflexion displaying: Tumor(s): none visualized Trabeculation: moderate Mucosal Erthema: N/A Orifices: normal shape and position Urethra: normal Cystoscopy findings: prostatic urethra obstructive, bulbous urethra WNL, no suspicious bladder lesions visualized [id number] DISPOSABLE SCOPE URO-G FLEXIBLE SCOPE Procedure code (CPT) selection complete Office Meds lidocaine HCl 2 % mucosal jelly in applicator Performing Provider: Violeta Delgado MD Performing Location: [facility] [place] Administered by: Kathy Patricio RN on 01/31/23 08:36 Dose Route Admin Location Dispensed Lot Number Expiration Date NDC Typewriter Repairer 10 mL intra-urethral 20 mL naproxen 500 mg tablet Performing Provider: Violeta Delgado MD Performing Location: [facility] [place] Administered by: Kahty Patricio RN on 01/31/23 08:36 Dose Route Admin Location Dispensed Lot Number Expiration Date NDC Typewriter Repairer 500 mg PO 1 tab ciprofloxacin HCl 500 mg tablet Performing Provider: Violeta Delgado MD Performing Location: [facility] [place] Administered by: Kathy Patricio RN on 01/31/23 08:36 Dose Route Admin Location Dispensed Lot Number Expiration Date NDC Typewriter Repairer 500 mg PO 1 tab Results AMB Urinalysis, Automated UA Leukoctes 0 Kulwant/uL Last Edit by ELLE Figueroa on 01/31/23 08:55 UA Nitrite Negative Last Edit by ELLE Figueroa on 01/31/23 08:55 UA Urobilinogen 0.2 mg/dL Last Edit by ELLE Figueroa on 01/31/23 08:5 5 UA Protein 0 mg/dL Last Edit by ELLE Figueroa on 01/31/23 08:55 UA pH 7.0 Last Edit by ELLE Figueroa on 01/31/23 08:55 UA Blood 0 Rosas/uL Last Edit by Harpal NikELLE coronado on 01/31/23 08:55 UA Specific [place] 1.010 Last Edit by Eliroger NikPATRICIA coronadoA on 01/31/23 08: 55 UA Ketone Negative Last Edit by Harpal NikELLE coronado on 01/31/23 08:55 UA Bilirubin 0 mg/dL Last Edit by ELLE Figueroa on 01/31/23 08:55 UA Glucose 0 mg/dL Last Edit by ELLE Figueroa on 01/31/23 08:55 Results Reviewed Results Reviewed: Laboratory Last Values Urine pH (Auto) 7.0 01/31/23 08:34 Specific [place] (Auto) 1.010 01/31/23 08:34 Urine Protein (Auto) 0 mg/dL 01/31/23 08:34 Glucose (UA)(Auto) 0 mg/dL 01/31/23 08:34 Urine Ketones (Auto) Negative 01/31/23 08:34 Urine Blood (Auto) 0 Rosas/uL 01/31/23 08:34 Urine Nitrite (Auto) Negative 01/31/23 08:34 Urine Bilirubin (Auto) 0 mg/dL 01/31/23 08:34 Urine Urobilinogen (Auto) 0.2 mg/dL 01/31/23 08:34 Leukocyte Esterase (Auto) 0 Kulwant/uL 01/31/23 08:34 Diagnosis: 12/07/2022-- Urine, cytology: Negative for high-grade urothelial carcinoma. COMMENT: Review of the cytology preparation demonstrates a hypocellular specimen composed of rare squames and urothelial cells. Red blood cells are noted. There is no significant atypia seen. Clinical History Other abnormal findings on cytological and histological examination of urine Material Received Urine Gross Description 50cc, clear yellow fluid 11/02/2022 Diagnosis Urine: Few degenerated atypical urothelial cells. COMMENT: Examination of a monolayer preparation slide shows scattered benign urothelial cells, few benign squamous cells, and few groups of atypical but degenerated urothelial cells within increased nuclear:cytoplasmic ratios meeting the criteria for atypia. There are also scattered inflammatory cells and red blood cells. Clinical History Other microscopic hematuria Material Received Urine Gross Description 40cc clear yellow fluid Assessment & Plan Assessment & Plan (1) Microscopic hematuria: Code(s): R31.29 - Other microscopic hematuria (2) BPH loc w urin obs/LUTS: Code(s): N40.1 - Benign prostatic hyperplasia with lower urinary tract symptoms Plan Enlarged prostate. I will start him on an alpha-rui. Once CT scan airport operations manager available we will review with the patient Followup in 3 months. Orders: Orders AMB Cystoscopy Today R31.29 - Other microscopic hematuria, R82.89 - Other abnormal findings on cytological and histological examination of urine AMB Urinalysis Automated Today Z13.9 - Encounter for screening, unspecified Medications: New alfuzosin ER administer after the same meal each day 10 mg PO DAILY 90 tabs 0RF Patient Instructions: The patient had an opportunity to ask questions regarding treatment plan. All questions were answered. Imaging, Laboratory studies and physical exam results were discussed and reviewed in detail. No major barriers to understanding were identified. The patient expressed understanding and agreement with the above treatment plan.? ? ? The patient is aware they should contact our office by phone for worsening of their current condition or the appearance of new symptoms. Compliance is encouraged with any medications and followup testing that is ordered.? ? ? It is a privilege to be allowed the opportunity to participate in the urologic care of your patient. If you have any questions or concerns regarding treatment for the above conditions please do not hesitate to contact me. The office telephone contact is [phone].? ? ? This note is constructed in part using voice recognition software. While every effort has been made to ensure accuracy airport operations manager errors may have been included.? ? ? Yours sincerely,? ? ? Violeta Delgado MD? Coding Level of Care Code Est Pt Level 3 (37967) Diagnoses Microscopic hematuria R31.29 BPH loc w urin obs/LUTS N40.1 CPT Codes Cystoscopy - CPT: 14327-[id number] ([id number])
== END 2023-01-31 09:44 | disposition home or self-care (01) ==
PROVIDERS: PCP Nurse Practitioner Family; Visit Provider Urology
DX: R31.29 Other microscopic hematuria (principal); N40.1 Benign prostatic hyperplasia with lower urinary tract symptoms; R82.89 Other abnormal findings on cytological and histological examination of urine; Z13.9 Encounter for screening, unspecified
CPT/HCPCS: 52000; 99214

== ENCOUNTER → 2023-01-31 08:19 | Outpatient (BNVA) | payer MEDICARE, OTHER, SELFPAY | PROVIDERS: PCP Nurse Practitioner Family; Visit Provider Urology | DX: N40.1 Benign prostatic hyperplasia with lower urinary tract symptoms (principal); R31.29 Other microscopic hematuria | CPT/HCPCS: 52000; 81003; 99212 ==

== ENCOUNTER 2023-04-29 08:33 | Outpatient (AMB) | payer MEDICARE, OTHER, SELFPAY ==
--- NOTE | 2023-04-29 08:46 | MHC.OFFVIS ---
Intake Intake Visit Reasons: 3m follow up Intake Note: Patient presents today for a follow-up on: BPH/ Alfuzosin Meds- Alfuzosin Allergies to Antibiotic- No Known Allergies Blood Thinner- Eliquis Post Void Residual:38 Patient Symptoms: Patient stated he is doing a little bit of improvement with the new medication Alfuzosin. Allergies seasonal Allergy (Uncoded 04/29/23 09:00) Unknown Medication List - Last Reconciled 04/29/23 by Violeta Delgado MD alfuzosin ER 10 mg PO DAILY apixaban (Eliquis) 2.5 mg PO BID fenofibrate micronized 134 mg PO DAILY hydrochlorothiazide 50 mg PO QAM lisinopril 40 mg PO DAILY simvastatin 20 mg PO BEDTIME HPI HPI Comments History of Present Illness Details 04/29/23-- Walter is a 67-year-old male who presents today to the office for follow-up microscopic hematuria and atypical urothelial cells and BPH. LV--01/31/2023?he was seen for office cysto--Cystoscopy findings: Prostate enlarged with a obstructive median. No suspicious bladder lesions noted and he was started on alfuzosin 10 mg daily. PMH CVA, PE on eliquis, Htn, GERARDO. Walter states that he has noticed some improvement in the urinary flow since being on the alfuzosin. He has not getting more than 2 times at night he is able to make it to the bathroom without having any leaking episodes. I have reviewed with him the CT scan results January 2023 kidneys within normal limits prostate enlarged. Bladder scan PVR--38 mL Review of chart: Lab data: urine cytology report from 11/02/2022 which revealed a few degenerated atypical urothelial cells. Cytology report from 12/07/2022 revealed negative for high-grade urothelial caracinoma. PSA results from 04/30/2022 revealed 0.81 ng/mL. CT urogram performed on 01/29/2023, kidneys WNL, prostate enlarged 01/31/2023: Cystoscopy procedure: Cystoscopy findings: Prostate enlarged with a obstructive median. No suspicious bladder lesions noted. 04/29/2023: Plan: Continue alfuzosin Follow-up in 1 year PSA prior [facility] Medical History CVA (cerebral vascular accident) HTN (hypertension) Erectile dysfunction Bilateral pulmonary embolism (~05/2019) GERARDO (obstructive sleep apnea) Hyperlipidemia Surgical History Hx of cystoscopy H/O surgical biopsy (~01/24/23) Hx of tonsillectomy H/O colonoscopy History of umbilical hernia repair Family History Father No problems noted. 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 Cognitive needs: No Hearing needs: No Vision needs: No Review of Systems Const All systems reviewed & are unremarkable except as noted in HPI and below Reports no additional complaints Eyes Reports no additional complaints ENT Reports no additional complaints Card Denies dyspnea Resp Denies cough and Denies dyspnea GI Reports no additional complaints Musc Reports no additional complaints Skin/Breast Denies rash and Denies unusual bruising Neuro Reports no additional complaints Psych Reports no additional complaints Endo Reports no additional complaints Teodoro/Lymph Reports no additional complaints Aller/Immun Reports no additional complaints Office Procedures Post Void Residual Post Residual Void Post Void Residual (PVR): 38 [id number] Void Residual by ultrasound Results AMB Urinalysis, Automated UA Leukoctes 0 Kulwant/uL Last Edit by Lauren Higginbotham CMA on 04/29/23 08:59 UA Nitrite Negative Last Edit by Lauren Higginbotham CMA on 04/29/23 08:59 UA Urobilinogen 0.2 mg/dL Last Edit by Lauren Higginbotham CMA on 04/29/23 08:59 UA Protein 0 mg/dL Last Edit by Lauren Higginbotham CMA on 04/29/23 08:59 UA pH 6.0 Last Edit by Lauren Higginbotham CMA on 04/29/23 08:59 UA Blood 0 Rosas/uL Last Edit by Lauren Higginbotham [facility] on 04/29/23 08:59 UA Specific [place] 1.020 Last Edit by Lauren Higginbotham, [facility] on 04/29/23 08:59 UA Ketone Negative Last Edit by Lauren Higginbotham [employer]OMATION SALES MANAGER on 04/29/23 08:59 UA Bilirubin 0 mg/dL Last Edit by Lauren Higginbotham [facility] on 04/29/23 08:59 UA Glucose 0 mg/dL Last Edit by Lauren Higginbotham [facility] on 04/29/23 08:59 Results Reviewed Results Reviewed: Laboratory Last Values Urine pH (Auto) 6.0 04/29/23 08:57 Specific [place] (Auto) 1.020 04/29/23 08:57 Urine Protein (Auto) 0 mg/dL 04/29/23 08:57 Glucose (UA)(Auto) 0 mg/dL 04/29/23 08:57 Urine Ketones (Auto) Negative 04/29/23 08:57 Urine Blood (Auto) 0 Rosas/uL 04/29/23 08:57 Urine Nitrite (Auto) Negative 04/29/23 08:57 Urine Bilirubin (Auto) 0 mg/dL 04/29/23 08:57 Urine Urobilinogen (Auto) 0.2 mg/dL 04/29/23 08:57 Leukocyte Esterase (Auto) 0 Kulwant/uL 04/29/23 08:57 Date of Service: 01/29/23 EXAMINATION: CT ABDOMEN AND PELVIS WITHOUT AND WITH CONTRAST CLINICAL INFORMATION: Hematuria. COMPARISON: CT abdomen and pelvis 06/26/2019 TECHNIQUE: Noncontrast CT of the abdomen and pelvis is performed followed by split bolus contrast-enhanced images using 85 mL Omnipaque 350 contrast.? Postcontrast imaging is performed during the combined nephrogram and excretion phase. Sagittal and coronal reformatted images were obtained on the technologist's workstation for both the precontrast and postcontrast phases. This CT examination was performed using dose optimization techniques as appropriate, variously including the following: *Automated exposure control *Adjustment of mA and/or kV according to patient size (this includes techniques or standardized protocols for targeted exams where dose is matched to indication/reason for exam; i.e. extremities or head) *Use of iterative reconstruction technique DLP: 1474 mGy-cm FINDINGS: LUNG BASES: Calcified granuloma right middle lobe. No follow-up imaging is recommended as per Fleischner Society guidelines. LIVER, GALLBLADDER, AND BILIARY TREE: Hepatic steatosis. No discrete mass. No ductal dilatation. The gallbladder is unremarkable with no evidence of radiopaque gallstones, gallbladder wall thickening, or obvious pericholecystic inflammatory changes. PANCREAS: No discrete pancreatic mass. No ductal dilatation. SPLEEN: Normal; no mass ADRENAL GLANDS: Normal; no mass. KIDNEYS AND URETERS: No nephrolithiasis on noncontrast imaging. Symmetric nephrograms. There are multiple tiny cortical hypodensities in both kidneys that are too small to characterize but most likely cysts. No follow-up imaging is recommended. Additionally there is a 3.1 cm simple cyst in the lower pole left kidney. No follow-up imaging is recommended. Symmetric urinary excretion of contrast. No hydroureteronephrosis. No filling defects in the collecting system BLADDER: No bladder calculus. No discrete bladder mass. The bladder base is deformed by the prostate. GASTROINTESTINAL TRACT: The small bowel is normal in caliber. The appendix is normal. Moderate sigmoid diverticulosis without evidence of diverticulitis. ABDOMINAL WALL: No significant hernia is appreciated. LYMPH NODES: No lymphadenopathy. VASCULAR: Mild atherosclerosis. No aortic aneurysm PELVIC VISCERA: The prostate measures 4.3 x 4.0 x 5.1 cm approximately 44 mL. OSSEUS STRUCTURES: Bilateral pars defects at L5 with grade 1 anterolisthesis and severe degenerative disc disease at L5-S1. IMPRESSION: No nephrolithiasis. No suspicious renal mass. Normal CT urogram. Enlarged prostate. Assessment & Plan Assessment & Plan (1) BPH loc w urin obs/LUTS: Code(s): N40.1 - Benign prostatic hyperplasia with lower urinary tract symptoms (2) Screening PSA (prostate specific antigen): Code(s): Z12.5 - Encounter for screening for malignant neoplasm of prostate (3) Microscopic hematuria: Code(s): R31.29 - Other microscopic hematuria Plan Continue alfuzosin 10 mg Follow-up in 1 year PSA prior Orders: Orders AMB Urinalysis Automated Today R33.9 - Retention of urine, unspecified PSA,Total (Free>4and<10) 11 Months N40.1 - Benign prostatic hyperplasia with lower urinary tract symptoms, Z12.5 - Encounter for screening for malignant neoplasm of prostate AMB Post Void Residual by ultrasound Today R33.9 - Retention of urine, unspecified Medications: Refilled alfuzosin ER administer after the same meal each day 10 mg PO DAILY 90 tabs 3RF Patient Instructions: The patient had an opportunity to ask questions regarding treatment plan. All questions were answered. Imaging, Laboratory studies and physical exam results were discussed and reviewed in detail. No major barriers to understanding were identified. The patient expressed understanding and agreement with the above treatment plan. The patient is aware they should contact our office by phone for worsening of their current condition or the appearance of new symptoms. Compliance is encouraged with any medications and followup testing that is ordered. It is a privilege to be allowed the opportunity to participate in the urologic care of your patient. If you have any questions or concerns regarding treatment for the above conditions please do not hesitate to contact me. The office telephone contact is [phone]. This note is constructed in part using voice recognition software. While every effort has been made to ensure accuracy billing services manager errors may have been included. Yours sincerely, Violeta Delgado MD Coding Level of Care Code Est Pt Level 4 (31544) Diagnoses BPH loc w urin obs/LUTS N40.1 Screening PSA (prostate specific antigen) Z12.5 Microscopic hematuria R31.29 CPT Codes Post Residual Void - PVR CPT Code: 70551-Utrf Void Residual by ultrasound ([id number])
== END 2023-04-29 09:40 | disposition home or self-care (01) ==
PROVIDERS: PCP Nurse Practitioner Family; Visit Provider Urology
DX: N40.1 Benign prostatic hyperplasia with lower urinary tract symptoms (principal); Z12.5 Encounter for screening for malignant neoplasm of prostate; R31.29 Other microscopic hematuria; R33.9 Retention of urine, unspecified
CPT/HCPCS: 99214

== ENCOUNTER → 2023-04-29 08:33 | Outpatient (BNVA) | payer MEDICARE, OTHER, SELFPAY | PROVIDERS: PCP Nurse Practitioner Family; Visit Provider Urology | DX: R31.29 Other microscopic hematuria (principal); N40.1 Benign prostatic hyperplasia with lower urinary tract symptoms; N13.8 Other obstructive and reflux uropathy; Z79.899 Other long term (current) drug therapy | CPT/HCPCS: 51798; 81003; 99212 ==

== ENCOUNTER 2023-07-31 08:50 | Outpatient (AMB) | payer MEDICARE, OTHER, SELFPAY ==
--- NOTE | 2023-07-31 09:07 | MHC.PC.OV ---
Vital Signs 07/31/23 09:10 Height 5 ft 10 in Weight 275 lb BMI 39.5 BP 112/70 Blood Pressure Location Rt brachial Position Sitting Pulse 65 Pulse Source Pulse Oximeter Pulse Oximetry (%) 95 Oxygen Delivery Method Room Air Intake Visit Reasons: Annual PE Intake Note: Patient here for physical exam. colon: 2024 due 2024 Allergies seasonal Allergy (Uncoded 07/31/23 09:22) Unknown Medication List - Last Reconciled 07/31/23 by ADI Carlin alfuzosin ER 10 mg PO DAILY apixaban (Eliquis) 2.5 mg PO BID fenofibrate micronized 134 mg PO DAILY hydrochlorothiazide 50 mg PO QAM lisinopril 40 mg PO DAILY simvastatin 20 mg PO BEDTIME Tobacco use date assessed: 07/31/23 Fall risk assessment: No Falls in past year Last assessed Fall Risk: 07/31/23 Dental Screening Dental Screen Date: 07/31/23 Did you have a dental visit in the last 12 months?: Yes Did you have a dental problem in the last 6 months where you did not have access to dental care?: No Was dental information given to patient?: Patient has dentist HPI Annual PE HPI Details Pt is here for a PE. Will order labs. Colon screen is up to date. Due for PSA, will order. Pt sees urology. Denies dribbling with urination, weak stream, and frequent nocturia. Pt sees derm, squamous cell carcinoma removed last fall. Pt is also following up with hematology. [facility] Medical History (Updated 07/31/23 @ 09:25 by ADI Carlin) Squamous cell carcinoma of skin CVA (cerebral vascular accident) HTN (hypertension) Erectile dysfunction Bilateral pulmonary embolism (~05/2019) GERARDO (obstructive sleep apnea) Hyperlipidemia Surgical History Hx of cystoscopy H/O surgical biopsy (~01/24/23) Hx of tonsillectomy H/O colonoscopy History of umbilical hernia repair Family History Father No problems noted. 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 1. Little interest or pleasure in doing things: not at all 2. Feeling down, depressed, or hopeless: not at all 3. Trouble falling or staying asleep, or sleeping too much: not at all 4. Feeling tired or having little energy: not at all 5. Poor appetite or overeating: not at all 6. Feeling bad about yourself - or that you are a failure or have let yourself or your family down: not at all 7. Trouble concentrating on things, such as reading the newspaper or watching television: not at all 8. Moving or speaking so slowly that other people could have noticed. Or the opposite - being so fidgety or restless that you have been moving around a lot more than usual: not at all 9. Thoughts that you would be better off or of hurting yourself in some way: not at all Total score: 0 Depression Screening Interpretation: Negative Depression Screening Done: Yes 73829 - PHQ-9 Billing: Yes Source: Developed by Drs. Dieudonne Alonso, Bev Vu, Julien Schofield and colleagues, with an educational luciano from [employer]. Thrive Questionnaire Date Thrive assessed: 07/31/23 I am a: Patient What is your living situation today?: I have a steady place to live Within the past 12 months, did the food you bought not last and you didn't have the money to get more?: Never true Within the past 12 months, did you worry whether your food would run out before you got money to buy more?: Never true Do you have trouble paying for medicines?: No Do you have trouble getting transportation to medical appointments?: No Do you have trouble paying your heating and electricity bill?: No Do you have trouble taking care of your child, family member or friend?: No Do you have trouble with day-to-day activities such as bathing, preparing meals, shopping, managing finances, etc.?: No Are you currently unemployed and looking for a job?: No Are you interested in more education?: No Currently or been in a relationship where the following occur: I choose not to answer this question THRIVE Score: 0 AUDIT C Alcohol Use Questionnaire (AUDIT-C) 1. How often do you have a drink containing alcohol?: 2-3 times a week 2. How many drinks containing alcohol do you have on a typical day when you are drinking?: 1 or 2 3. How often do you have six or more drinks on one occasion?: Never Total Score: 3 Score Reviewed/Action Taken: Yes DIEGO-7 AMB Questionnaire DIEGO-7 Date DIEGO - 7 assessed: 07/31/23 Feeling nervous, anxious, or on edge: 0 = Not at all Not being able to stop or control worryin = Not at all Worrying too much about different things: 0 = Not at all Trouble relaxin = Not at all Being so restless that it is hard to sit still: 0 = Not at all Becoming easily annoyed or irritable: 0 = Not at all Feeling afraid as if something awful might happen: 0 = Not at all Total DIEGO-7 score (0-4 normal; 5-9 mild; 10-14 moderate; 15-21 severe): 0 Source: Developed by Drs. Dieudonne Alonso, Bev Vu, Julien Schofield and colleagues, with an educational luciano from [employer]. DIEGO-7 Assessment Billing DIEGO-7 Assessment Tool: DIEGO-7 Assessment 18437 Review of Systems Const Denies chills and Denies fever(s) Eyes Denies blurry vision ENT Denies vertigo, Denies dizziness and Denies sore throat Card Denies chest pain at rest, Denies chest pain with activity, Denies diaphoresis, Denies dyspnea and Denies dyspnea on exertion Resp Denies cough, Denies dyspnea, Denies dyspnea on exertion and Denies wheezing GI Denies abdominal pain, Denies melena, Denies hematochezia, Denies constipation, Denies diarrhea and Denies loose stools Denies hematuria Musc Denies numbness and Denies tingling Skin/Breast Denies lesions Neuro Denies vertigo, Denies dizziness, Denies numbness and Denies tingling Psych Denies anxiety, Denies depression, Denies homicidal ideation, Denies suicidal ideation and Denies other (substance abuse) Aller/Immun Denies wheezing Physical exam (Primary Care) Vital Signs: Last Vital Signs Pulse 65 07/31/23 09:10 BP 112/70 07/31/23 09:10 Pulse Ox 95 07/31/23 09:10 Oxygen Delivery Method Room Air 07/31/23 09:10 BMI result Body Mass Index 39.5 Tobacco/Smoking Status: Tobacco use Status Tobacco use date assessed 07/31/23 07/31/23 09:13 Patient Tobacco Use Status Never used Tobacco 07/31/23 09:09 e-Cigarette/Vaping Use Never Used 07/31/23 09:09 PHQ-9: PHQ-9 Score PHQ-9: Total score 0 07/31/23 09:20 Depression Screening Interpretation: Negative Thrive Assessment: Date of Thrive Assessment Date Thrive assessed 07/31/23 07/31/23 09:17 Currently or been in a relationship where the following occur: I choose not to answer this question Const General: cooperative Nutritional Appearance: obese Orientation/consciousness: patient oriented x3 HENMT Head: Yes normal to inspection, Yes normocephalic and Yes atraumatic Ears: TM's normal bilaterally Eyes General: appearance normal, both eyes and all related structures Alignment and Position: alignment normal and position normal Neck Neck: Yes normal visual inspection and Yes no lymphadenopathy Thyroid: Thyroid normal Resp Effort & Inspection: normal respiratory effort Auscultation: clear to auscultation bilaterally Cardio Rate: regular rate Rhythm: regular rhythm Heart sounds: S1 normal heart sound present, S2 normal heart sound present and no murmurs GI Palpation (GI): Soft to palpation and nontender Auscultation: normal bowel sounds Male General Exam: Yes normal external exam Penis: normal penis Scrotum: scrotum normal, testes descended bilaterally and no inguinal hernias Testes: no testicular mass Skin Rashes: no rashes Neuro General: patient oriented x3, moves all extremities, no focal motor deficits and deep tendon reflexes 2+ bilaterally Romberg Test: Negative Psych Appearance: grossly normal Mental Status: mental status grossly normal Speech and movement: Normal speech and movement present Affect: normal affect Attitude: cooperative Thought process: Normal thought process present Thought content: Normal thought content present Insight: Good insight present (Psych) Judgement: Good judgement present (Psych) Assessment and Plan Assessment & Plan (1) Physical exam: Code(s): Z00.00 - Encounter for general adult medical examination without abnormal findings Plan: Labs ordered (2) Screening PSA (prostate specific antigen): Code(s): Z12.5 - Encounter for screening for malignant neoplasm of prostate (3) Vitamin D deficiency: Code(s): E55.9 - Vitamin D deficiency, unspecified Plan: lab ordered Plan The patient agreed to the use of a medical laboratory technologist for this encounter. Scribed for ADI Alcaraz by Selma Atkins medical laboratory technologist, on 07/31/2023 at 09:20 EST. Orders: Orders Complete Blood Count Auto Diff Today Z00.00 - Encounter for general adult medical examination without abnormal findings Comprehensive [place]. Panel Fast Today Z00.00 - Encounter for general adult medical examination without abnormal findings TSH reflex Free T4 Today Z00.00 - Encounter for general adult medical examination without abnormal findings UA CC w/rflx Micro + Cult Today Z00.00 - Encounter for general adult medical examination without abnormal findings Lipid Panel Today Z00.00 - Encounter for general adult medical examination without abnormal findings Prostate Specific Antigen Scr Today Z12.5 - Encounter for screening for malignant neoplasm of prostate Vitamin D 25-OH Total Today E55.9 - Vitamin D deficiency, unspecified Coding Level of Care Code Est Pt Prev Care >65y(02247) Diagnoses Physical exam Z00.00 Screening PSA (prostate specific antigen) Z12.5 Vitamin D deficiency E55.9 Additional Codes DIEGO-7 Assessment Billing - DIEGO-7 Assessment Tool: DIEGO-7 Assessment 84877 ([id number])
[2023-07-31 09:10] VITALS: BP 112/70; PULSE 65; O2SAT 95; BMI 39.5
== END 2023-07-31 09:41 | disposition home or self-care (01) ==
PROVIDERS: Visit Provider Nurse Practitioner Family
DX: Z00.00 Encounter for general adult medical examination without abnormal findings (principal); Z12.5 Encounter for screening for malignant neoplasm of prostate; E55.9 Vitamin D deficiency, unspecified
CPT/HCPCS: 99397

== ENCOUNTER 2023-07-31 09:52 | Outpatient (REF) | payer MEDICARE, OTHER, SELFPAY ==
[2023-07-31 13:17] LABS: MANUAL DIFF FLAG NO
[2023-07-31 13:30] LABS: Basophils Absolute Auto 0.1 X10*3/uL (0.0-0.2); Basophils Percent Auto 1.2 % (0-2); Eosinophils Absolute Auto 0.2 X10*3/uL (0.0-0.4); Eosinophils Percent Auto 3.4 % (0-4); Hematocrit 41.9 % (42.0-52.0); Hemoglobin 14.2 g/dl (14.0-18.0); Imm Gran Abs Auto 0.01 X10*3/uL (0.00-0.03); Imm Gran Pct Auto 0.2 % (0.0-0.4); Lymphocytes Absolute Auto 1.8 X10*3/uL (1.2-4.9); Lymphocytes Percent Auto 30.4 % (20-40); Mean Corpuscular HGB Conc 33.9 g/dl (31.0-36.0); Mean Corpuscular Hemoglobin 29.8 pg (27.0-33.0); Mean Corpuscular Volume 87.8 fL (80.0-98.0); Mean Platelet Volume 12.4 fL (9.4-12.4); Monocytes Absolute Auto 0.6 X10*3/uL (0.1-1.2); Monocytes Percent Auto 9.6 % (2-11); Neutrophils Absolute Auto 3.3 x10*3/uL (2.0-8.3); Neutrophils Percent Auto 55.2 % (45-73); Platelet Count 197 X10*3/uL (160-400); Red Blood Count 4.77 X10*6/uL (4.60-5.80); Red Cell Distribution Width 13.2 % (11.0-16.0)
[2023-07-31 13:35] LABS: Appearance Urine Clear; Color Urine Yellow; Glucose Urine UA Negative (Negative); Leukocyte Esterase Urine Trace (Negative); Nitrite Urine Negative (Negative); PH 7.5 (5.0-9.0); Specific Gravity - Urine 1.025 (1.005-1.025); UMIC TRIGGER UACC YES; Urine Blood Negative (Negative); Urine Ketones Negative (Negative); Urine Protein Negative (Neg-Trace)
[2023-07-31 13:43] LABS: Bacteria Urine None Seen (None Seen); Hyaline Casts Urine 0-2 /LPF (0-2); RBC Urine 0-2 /HPF (0-2); Squamous Epithelial Cell Urine 0-2 /HPF (0-2); WBC Urine 0-5 /HPF (0-5)
[2023-07-31 14:04] LABS: Alanine Aminotransferase 41 U/L (0-40); Albumin Level 4.2 g/dL (3.5-5.0); Alkaline Phosphatase 30 U/L (39-117); Anion Gap 14 (12-20); Aspartate Amino Transferase 31 U/L (5-37); Bilirubin Total 0.6 mg/dL (0.0-1.0); Blood Urea Nitrogen 19 mg/dL (9-16); Calcium 9.8 mg/dL (8.4-10.2); Carbon Dioxide 25 mmol/L (22-29); Chloride 105 mmol/L (96-108); Cholesterol 146 mg/dL (<200); Estimated Glomerular Filt Rate > 60; Glucose Fasting 90 mg/dL (60-99); HDL Cholesterol 30 mg/dL (>40); LDL Cholesterol Calculated 91 mg/dL (<100); Magnesium 2.2 mg/dL (1.6-2.6); Sodium 140 mmol/L (135-145); TSH reflex Free T4 2.81 uIU/mL (0.32-4.0); Triglycerides 128 mg/dL (<150); Vitamin D 25-OH Total 38.4 ng/mL (>30)
[2023-07-31 14:10] LABS: Folate 12.8 ng/mL (> or = 4.0); Prostate Specific Antigen Scr 0.84 ng/mL (<0.05-4.0); Vitamin B12 530 pg/mL (200-900)
[2023-08-01 13:18] LABS: Ceruloplasmin 22 mg/dL (18-36)
[2023-08-03 01:49] LABS: Zinc 64 mcg/dL (60-130)
== END 2023-07-31 09:53 | disposition home or self-care (01) ==
LOC: HO.HMGCLDS 09:52
PROVIDERS: PCP Nurse Practitioner Family; Visit Provider Nurse Practitioner Family
DX: Z00.00 Encounter for general adult medical examination without abnormal findings (principal); R74.8 Abnormal levels of other serum enzymes; Z12.5 Encounter for screening for malignant neoplasm of prostate; E55.9 Vitamin D deficiency, unspecified; R31.29 Other microscopic hematuria
CPT/HCPCS: 36415; 80053; 80061; 81001; 82306; 82390; 82607; 82746; 83735; 84153; 84443; 84630; 85025

== ENCOUNTER 2024-02-06 07:53 | Outpatient (AMB) | payer MEDICARE, OTHER, SELFPAY ==
[2024-02-06 07:54] VITALS: BP 140/80; PULSE 84; O2SAT 97; BMI 38.6
--- NOTE | 2024-02-06 07:54 | MHC.PC.OV ---
Vital Signs 02/06/24 07:54 02/06/24 08:18 Height 5 ft 10 in Weight 269 lb BMI 38.6 BP 140/80 H 112/70 Blood Pressure Location Lt brachial Rt brachial Position Sitting Sitting Pulse 84 Pulse Source Pulse Oximeter Pulse Oximetry (%) 97 Oxygen Delivery Method Room Air Intake Visit Reasons: 6 mon f/u - see comments Intake Note: Pt is here today for his 6mo. f/u Allergies seasonal Allergy (Uncoded 02/06/24 07:55) Unknown Tobacco use date assessed: 02/06/24 Fall risk assessment: No Falls in past year Last assessed Fall Risk: 02/06/24 Dental Screening Dental Screen Date: 02/06/24 Did you have a dental visit in the last 12 months?: Yes Did you have a dental problem in the last 6 months where you did not have access to dental care?: No Was dental information given to patient?: Patient has dentist HPI 6 mon f/u - see comments HPI Details HTN: Blood pressure is stable, managed with hydrochlorothiazide 50mg and lisinopril 40mg. Dyslipidemia: Pt is taking simvastatin 20mg and fenofibrate 134mg. Will order labs. Denies chest pain, shortness of breath, headache, dizziness, and blurred vision. Refused further vaccinations. [facility] Medical History Fatty liver Squamous cell carcinoma of skin CVA (cerebral vascular accident) HTN (hypertension) Erectile dysfunction Bilateral pulmonary embolism (~05/2019) GERARDO (obstructive sleep apnea) Hyperlipidemia Surgical History Hx of cystoscopy H/O surgical biopsy (~01/24/23) Hx of tonsillectomy H/O colonoscopy History of umbilical hernia repair Family History Father No problems noted. Mother CAD (coronary artery disease) Afib Paternal Uncle Skin cancer (melanoma) Social History Household Members: Spouse Housing: House Housing Other:: patient refused Are you a primary medicare sales executive to a significant other at home: No Do you presently have visiting nurse or other home services: No Alcohol intake: current Alcohol intake frequency: a few times a week Patient Tobacco Use Status: Never used Tobacco e-Cigarette/Vaping Use: Never Used Second Hand Smoke Exposure: No service: No Current occupational status: employed and retired Cognitive needs: No Hearing needs: No Vision needs: No Questionnaire PHQ-9 Over the last 2 weeks, how often have you been bothered by any of the following problems? 1. Little interest or pleasure in doing things: not at all 2. Feeling down, depressed, or hopeless: not at all 3. Trouble falling or staying asleep, or sleeping too much: not at all 4. Feeling tired or having little energy: not at all 5. Poor appetite or overeating: not at all 6. Feeling bad about yourself - or that you are a failure or have let yourself or your family down: not at all 7. Trouble concentrating on things, such as reading the newspaper or watching television: not at all 8. Moving or speaking so slowly that other people could have noticed. Or the opposite - being so fidgety or restless that you have been moving around a lot more than usual: not at all 9. Thoughts that you would be better off or of hurting yourself in some way: not at all Total score: 0 Depression Screening Interpretation: Negative Depression Screening Done: Yes 01797 - PHQ-9 Billing: Yes Source: Developed by Drs. Dieudonne Alonso, Bev Vu, Julien Schofield and colleagues, with an educational luciano from [employer]. Thrive Questionnaire Date Thrive assessed: 02/06/24 I am a: Patient What is your living situation today?: I have a steady place to live Within the past 12 months, did the food you bought not last and you didn't have the money to get more?: I choose not to answer this question Within the past 12 months, did you worry whether your food would run out before you got money to buy more?: I choose not to answer this question Do you have trouble paying for medicines?: I choose not to answer this question Do you have trouble getting transportation to medical appointments?: I choose not to answer this question Do you have trouble paying your heating and electricity bill?: I choose not to answer this question Do you have trouble taking care of your child, family member or friend?: I choose not to answer this question Do you have trouble with day-to-day activities such as bathing, preparing meals, shopping, managing finances, etc.?: I choose not to answer this question Are you currently unemployed and looking for a job?: I choose not to answer this question Are you interested in more education?: I choose not to answer this question Please select the resources that you would like help with: None Currently or been in a relationship where the following occur: I choose not to answer THRIVE Score: 0 AUDIT C Alcohol Use Questionnaire (AUDIT-C) 1. How often do you have a drink containing alcohol?: Never Total Score: 0 DIEGO-7 AMB Questionnaire DIEGO-7 Date DIEGO - 7 assessed: 02/06/24 Feeling nervous, anxious, or on edge: 0 = Not at all Not being able to stop or control worryin = Not at all Worrying too much about different things: 0 = Not at all Trouble relaxin = Not at all Being so restless that it is hard to sit still: 0 = Not at all Becoming easily annoyed or irritable: 0 = Not at all Feeling afraid as if something awful might happen: 0 = Not at all Total DIEGO-7 score (0-4 normal; 5-9 mild; 10-14 moderate; 15-21 severe): 0 Source: Developed by Drs. Dieudonne Alonso, Bev Vu, Julien Schofield and colleagues, with an educational luciano from [employer]. DIEGO-7 Assessment Billing DIEGO-7 Assessment Tool: DIEGO-7 Assessment 90908 Review of Systems Const Reports as per HPI Physical exam (Primary Care) Vital Signs: Last Vital Signs Pulse 84 02/06/24 07:54 BP 140/80 H 02/06/24 07:54 Pulse Ox 97 02/06/24 07:54 Oxygen Delivery Method Room Air 02/06/24 07:54 BMI result Body Mass Index 38.6 Tobacco/Smoking Status: Tobacco use Status Tobacco use date assessed 02/06/24 02/06/24 07:59 Patient Tobacco Use Status Never used Tobacco 02/06/24 07:59 e-Cigarette/Vaping Use Never Used 02/06/24 07:59 PHQ-9: PHQ-9 Score PHQ-9: Total score 0 02/06/24 08:10 Depression Screening Interpretation: Negative Thrive Assessment: Date of Thrive Assessment Date Thrive assessed 02/06/24 02/06/24 07:59 Currently or been in a relationship where the following occur: I choose not to answer Const General: cooperative Nutritional Appearance: obese Orientation/consciousness: patient oriented x3 Resp Effort & Inspection: normal respiratory effort Auscultation: clear to auscultation bilaterally Cardio Rate: regular rate Rhythm: regular rhythm Heart sounds: S1 normal heart sound present and S2 normal heart sound present Neuro General: patient oriented x3 Psych Appearance: grossly normal Mental Status: mental status grossly normal Speech and movement: Normal speech and movement present Affect: normal affect Attitude: cooperative Thought process: Normal thought process present Thought content: Normal thought content present Insight: Good insight present (Psych) Judgement: Good judgement present (Psych) Coding Level of Care Code Est Pt Level 3 (05622) Diagnoses Hyperlipidemia E78.5 HTN (hypertension) I10 Vitamin D deficiency E55.9 Additional Codes PHQ-9 - 14098 - PHQ-9 Billing: Yes ([id number]) DIEGO-7 Assessment Billing - DIEGO-7 Assessment Tool: DIEGO-7 Assessment 85937 ([id number]) Assessment & Plan Assessment & Plan (1) Hyperlipidemia: Code(s): E78.5 - Hyperlipidemia, unspecified Category: Medical Plan: Labs ordered (2) HTN (hypertension): Code(s): I10 - Essential (primary) hypertension Category: Medical Plan: Labs ordered (3) Vitamin D deficiency: Code(s): E55.9 - Vitamin D deficiency, unspecified Category: Medical Plan: Vitamin D ordered Plan The patient agreed to the use of a medical health researcher for this encounter. Scribed for ADI Alcaraz by Selma Atkins medical health researcher, on 02/06/2024 at 08:05 EST. Orders: Orders Comprehensive [place]. Panel Fast Today E78.5 - Hyperlipidemia, unspecified, I10 - Essential (primary) hypertension Vitamin D 25-OH Total Today E55.9 - Vitamin D deficiency, unspecified Complete Blood Count Auto Diff Today E78.5 - Hyperlipidemia, unspecified, I10 - Essential (primary) hypertension TSH reflex Free T4 Today E78.5 - Hyperlipidemia, unspecified, I10 - Essential (primary) hypertension UA CC w/rflx Micro + Cult Today E78.5 - Hyperlipidemia, unspecified, I10 - Essential (primary) hypertension Lipid Panel Today E78.5 - Hyperlipidemia, unspecified, I10 - Essential (primary) hypertension
[2024-02-06 08:18] VITALS: BP 112/70
== END 2024-02-06 08:21 | disposition home or self-care (01) ==
PROVIDERS: PCP Nurse Practitioner Family; Visit Provider Nurse Practitioner Family
DX: E78.5 Hyperlipidemia, unspecified (principal); I10 Essential (primary) hypertension; E55.9 Vitamin D deficiency, unspecified

== ENCOUNTER 2024-02-06 07:53 | Outpatient (REF) | payer MEDICARE, OTHER, SELFPAY ==
[2024-02-06 10:06] LABS: MANUAL DIFF FLAG NO
[2024-02-06 10:13] LABS: Appearance Urine Clear; Color Urine Yellow; Glucose Urine UA Negative (Negative); Leukocyte Esterase Urine Negative (Negative); Nitrite Urine Negative (Negative); PH 7.5 (5.0-9.0); Urine Blood Negative (Negative); Urine Ketones Negative (Negative); Urine Protein Negative (Neg-Trace)
[2024-02-06 10:24] LABS: Basophils Absolute Auto 0.1 X10*3/uL (0.0-0.2); Basophils Percent Auto 1.4 % (0-2); Eosinophils Absolute Auto 0.3 X10*3/uL (0.0-0.4); Eosinophils Percent Auto 4.6 % (0-4); Hematocrit 41.8 % (42.0-52.0); Imm Gran Abs Auto 0.03 X10*3/uL (0.00-0.03); Imm Gran Pct Auto 0.5 % (0.0-0.4); Lymphocytes Absolute Auto 1.7 X10*3/uL (1.2-4.9); Mean Corpuscular HGB Conc 33.5 g/dl (31.0-36.0); Mean Corpuscular Volume 86.5 fL (80.0-98.0); Mean Platelet Volume 12.2 fL (9.4-12.4); Monocytes Absolute Auto 0.5 X10*3/uL (0.1-1.2); Monocytes Percent Auto 8.4 % (2-11); Neutrophils Absolute Auto 3.7 x10*3/uL (2.0-8.3); Neutrophils Percent Auto 58.1 % (45-73); Platelet Count 217 X10*3/uL (160-400); Red Blood Count 4.83 X10*6/uL (4.60-5.80); Red Cell Distribution Width 12.8 % (11.0-16.0); White Blood Count 6.3 X10*3/uL (4.8-10.8)
[2024-02-06 10:38] LABS: Alanine Aminotransferase 45 U/L (0-40); Albumin Level 4.1 g/dL (3.5-5.0); Alkaline Phosphatase 33 U/L (39-117); Anion Gap 9 (12-20); Aspartate Amino Transferase 34 U/L (5-37); Bilirubin Total 0.5 mg/dL (0.0-1.0); Blood Urea Nitrogen 17 mg/dL (9-16); Calcium 9.3 mg/dL (8.4-10.2); Carbon Dioxide 29 mmol/L (22-29); Chloride 104 mmol/L (96-108); Cholesterol 132 mg/dL (<200); Estimated Glomerular Filt Rate > 60; Glucose Fasting 96 mg/dL (60-99); HDL Cholesterol 27 mg/dL (>40); LDL Cholesterol Calculated 84 mg/dL (<100); Potassium 3.5 mmol/L (3.3-5.1); Sodium 138 mmol/L (135-145); Total Protein 6.6 g/dL (6.5-8.0); Triglycerides 106 mg/dL (<150)
[2024-02-06 10:56] LABS: TSH reflex Free T4 3.42 uIU/mL (0.32-4.0); Vitamin D 25-OH Total 31.2 ng/mL (>30)
== END 2024-02-06 07:54 | disposition home or self-care (01) ==
LOC: HO.HMGCLDS 07:53
PROVIDERS: PCP Nurse Practitioner Family; Visit Provider Nurse Practitioner Family
DX: I10 Essential (primary) hypertension (principal); E78.5 Hyperlipidemia, unspecified; E55.9 Vitamin D deficiency, unspecified
CPT/HCPCS: 36415; 80053; 80061; 81003; 82306; 84443; 85025; 96127; 99212

== ENCOUNTER 2024-04-14 10:01 | Outpatient (REF) | payer MEDICARE, OTHER, SELFPAY ==
--- OUTSIDE RECORDS SUMMARY | 2024-04-14 11:18 | XMS_ITS ---
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
--- OUTSIDE RECORDS SUMMARY | 2024-04-14 11:18 | XMS_ITS | Encounter Summary ---
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 (Primary Dx); Vision loss of right eye; Visual field defect nasal step, right Social History Tobacco Use Types Packs/Day Years Used Date Smoking Tobacco: Never Assessed Sex and Gender Information Value Date Recorded Sex Assigned at Not on file Gender Identity Not on file Sexual Orientation Not on file documented as of this encounter Plan of Treatment Upcoming Encounters Date Type Department Care Team (Late st Contact Info) Description 07/06/2024 9:00 AM EDT Consult [facility] Neurology Ophthalmology [place] [address] [facility] [address] [place] [address] Sandy Mora DO 85 [facility] [address] [place] [address] Scheduled Referrals Name Type Priority Associated Diagnoses Orde r Schedule Amb Referral to Neurology-NeuroOph thalmology Outpatient Referral Routine 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
--- OUTSIDE RECORDS SUMMARY | 2024-04-14 11:18 | XMS_ITS | Clinical Summary ---
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 (Primary Dx); Vision loss of right eye; Visual field defect nasal step, right from Last 3 Months Social History Tobacco Use Types Packs/Day Years Used Date Smoking Tobacco: Never Assessed Sex and Gender Information Value Date Recorded Sex Assigned at Not on file Gender Identity Not on file Sexual Orientation Not on file Plan of Treatment Upcoming Encounters Date Type Department Care Team (Late st Contact Info) Description 07/06/2024 9:00 AM EDT Consult [facility] Neurology Ophthalmology [address] [phone] Sandy Mora DO [address] [address] Health Maintenance Due Date Last Done Comments Hepatitis C Virus Screening 1955 DTaP/Tdap/Td Vaccines (1 - Tdap) 10/11/1975 Colonoscopy 2001 Pneumococcal Vaccines 50+ (1 of 1 - PCV) 2006 Zoster (Shingles) Vaccine (1 of 2) 2006 Influenza Vaccine 10/24/2023 COVID-19 Vaccine (1 - 2023-2 5 season) 2023 RSV Vaccine 60 years and old er and Patients (1 - 1-dose 75+ series) 10/11/2031 Hepatitis B Vaccines Aged Out No long er eligible based on patient's age to complete this topic Care Teams Machine Sign Writer Relationship Specialty Start Date End Date Pcp, No PCP - General General Medicine 04/02/24
--- OUTSIDE RECORDS SUMMARY | 2024-04-14 11:18 | XMS_ITS | Patient Health Record ---
Author Organization [facility] Address [address] [place] [address] Care Team Providers Care Email Marketing Processor Name Role Phone VIVIANA FOSS Primary Care Provider Phil Koenig Jr Unavailable [phone] ALLERGIES Allergen (clinical drug ingredient) Drug/Non Drug Allergy documented on EMR Reaction Allergy Type Onset Date Status Seasonal (uncoded) Unknown Allergy A ctive REASON FOR REFERRAL No Information MEDICATIONS Medication SIG (Take, Route, Frequency, Duration) Notes Start Date End Date Status Simvastatin 20 MG 1 tablet in the evening Orally Once a day Active Aspirin 81 MG 1 tablet Orally Once a day Active Multivitamin Orally Active Eliquis Active MiraLax (colon prep) 8.3 oun ce ((238) grams mixed with Gatorade or Crystal Light orally begin at 5:00 p.m. the day before the procedure for 1 day 03/07/2020 Active Lisinopril Active Fenofibrate Active hydroCHLOROthiazide Active IMMUNIZATIONS Vaccine Route Administration Date Status Comme nts Influenza Unknown 12/02/2019 Administered SOCIAL HISTORY Sex Assigned At : Social History Observation Description Sex Assigned At Unknown PROBLEMS Problem Type ICD Code Onset Dates Problem Status W/U Status Risk SNOMED Code Notes Problem Colon cancer screening (Z12.11) Active confirmed 018494814 Problem [facility] (current) use of anticoagulants (Z79.01) Active confirmed 298399379 Problem Encounter for other preprocedural examination (Z01.818) Active confirmed 586062657 PLAN OF TREATMENT Future Test Test Name Order Date COLONOSCOPY 12/09/2013 COLONOSCOPY 03/07/2020 Insurance Providers Payer Name Payer Address Payer Phone Subscriber Number Group Number Insured Name Patient Relationship to Insured Coverage Start Date Coverage End Date [facility] [address] [place] [phone] [id number] SAMI RHODES Self - patient is the insured MEDICAL (GENERAL) HISTORY Medical History History ICD Code colonoscopy 07/14/14, hyperpl astic polyp, five-year followup do to family history of colon polyps. hypertension elevated cholesterol enviromental allergies mini stroke pulmonary embolism - June 05, 2019 neuropathy Surgical History Surgery Date(Month/Year) tonsillectomy hernia repair
[2024-04-14 14:12] LABS: PSA,Total (Free>4and<10) 1.16 ng/mL (0.00-4.00)
== END 2024-04-14 10:02 | disposition home or self-care (01) ==
LOC: HO.HMGCLDS 10:01
PROVIDERS: PCP Nurse Practitioner Family; Visit Provider Urology
DX: N40.1 Benign prostatic hyperplasia with lower urinary tract symptoms (principal); Z12.5 Encounter for screening for malignant neoplasm of prostate
CPT/HCPCS: 36415; 84153

== ENCOUNTER 2024-04-27 09:49 | Outpatient (AMB) | payer MEDICARE, OTHER, SELFPAY ==
--- NOTE | 2024-04-27 09:52 | MHC.OFFVIS ---
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 He was initially evaluated due to microscopic hematuria. Workup included office cystoscopy which noted obstructive prostate bladder mucosa no suspicious bladder lesions visualized. He is prescribed alfuzosin. Today's urinalysis is negative. Leukocytes negative blood negative. PSA 1.16 on 04/14/2024. The patient denies any irritative voiding symptoms. Bladder scan PVR 35 mL Will continue alfuzosin. 04/29/23-- Walter is a 67-year-old male who presents today to the office for follow-up microscopic hematuria and atypical urothelial cells and BPH. LV--01/31/2023?he was seen for office cysto--Cystoscopy findings: Prostate enlarged with a obstructive median. No suspicious bladder lesions noted and he was started on alfuzosin 10 mg daily. PMH CVA, PE on eliquis, Htn, GERARDO. Walter states that he has noticed some improvement in the urinary flow since being on the alfuzosin. He has not getting more than 2 times at night he is able to make it to the bathroom without having any leaking episodes. I have reviewed with him the CT scan results January 2023 kidneys within normal limits prostate enlarged. Bladder scan PVR--38 mL Lab data: urine cytology report from 11/02/2022 which revealed a few degenerated atypical urothelial cells. Cytology report from 12/07/2022 revealed negative for high-grade urothelial caracinoma. PSA results from 04/30/2022 revealed 0.81 ng/mL. CT urogram performed on 01/29/2023, kidneys WNL, prostate enlarged 01/31/2023: Cystoscopy procedure: Cystoscopy findings: Prostate enlarged with a obstructive median. No suspicious bladder lesions noted. [facility] Medical History Fatty liver Squamous cell carcinoma of skin CVA (cerebral vascular accident) HTN (hypertension) Erectile dysfunction Bilateral pulmonary embolism (~05/2019) GERARDO (obstructive sleep apnea) Hyperlipidemia Surgical History Hx of cystoscopy H/O surgical biopsy (~01/24/23) Hx of tonsillectomy H/O colonoscopy History of umbilical hernia repair Family History Father No problems noted. Mother CAD (coronary artery disease) Afib Paternal Uncle Skin cancer (melanoma) Social History Household Members: Spouse Housing: House Housing Other:: patient refused Are you a primary childcare administrator to a significant other at home: No Do you presently have visiting nurse or other home services: No Alcohol intake: current Alcohol intake frequency: a few times a week Patient Tobacco Use Status: Never used Tobacco e-Cigarette/Vaping Use: Never Used Second Hand Smoke Exposure: No service: No Current occupational status: employed and retired Cognitive needs: No Hearing needs: No Vision needs: No Review of Systems Const All systems reviewed & are unremarkable except as noted in HPI and below Reports no additional complaints Eyes Reports no additional complaints ENT Reports no additional complaints Card Reports no additional complaints Resp Reports no additional complaints GI Reports no additional complaints Reports as per HPI Musc Reports no additional complaints Skin/Breast Reports system reviewed and no additional complaints, except as documented Neuro Reports no additional complaints Psych Reports no additional complaints Endo Reports no additional complaints Teodoro/Lymph Reports no additional complaints Aller/Immun Reports no additional complaints Office Procedures Post Void Residual Post Residual Void Post Void Residual (PVR): 35 [id number] Void Residual by ultrasound Results AMB Urinalysis, Automated UA Leukoctes 0 Kulwant/uL Last Edit by CECY Gutiérrez on 04/27/24 10:03 UA Nitrite Negative Last Edit by CECY Gutiérrez on 04/27/24 10:03 UA Urobilinogen 0.2 mg/dL Last Edit by CECY Gutiérrez on 04/27/24 10:03 UA Protein 0 mg/dL Last [facility] on 04/27/[facility] 10:03 UA pH 6.5 Last Edit by Lucy Mcguire [facility] on 04/27/24 10:03 UA Blood 0 Rosas/uL Last Edit by Lucy Mcguire [facility] on 04/27/24 10:03 UA Specific [place] 1.015 Last Edit by Lucy Mcguire [facility] on 04/27/24 10:03 UA Ketone Negative Last Edit by [facility] on 04/27/24 10:03 UA Bilirubin 0 mg/dL Last Edit [facility] on 04/27/24 10:03 UA Glucose 0 mg/dL Last Edit by Lucy Mcguire [facility] on 04/27/24 10:03 Results Reviewed Results Reviewed: Laboratory Last Values Urine pH (Auto) 6.5 04/27/24 10:02 Specific [place] (Auto) 1.015 04/27/24 10:02 Urine Protein (Auto) 0 mg/dL 04/27/24 10:02 Glucose (UA)(Auto) 0 mg/dL 04/27/24 10:02 Urine Ketones (Auto) Negative 04/27/24 10:02 Urine Blood (Auto) 0 Rosas/uL 04/27/24 10:02 Urine Nitrite (Auto) Negative 04/27/24 10:02 Urine Bilirubin (Auto) 0 mg/dL 04/27/24 10:02 Urine Urobilinogen (Auto) 0.2 mg/dL 04/27/24 10:02 Leukocyte Esterase (Auto) 0 Kulwant/uL 04/27/24 10:02 Assessment & Plan Assessment & Plan (1) BPH loc w urin obs/LUTS: Code(s): N40.1 - Benign prostatic hyperplasia with lower urinary tract symptoms Category: Medical (2) Screening PSA (prostate specific antigen): Code(s): Z12.5 - Encounter for screening for malignant neoplasm of prostate Category: Medical (3) Microscopic hematuria: Code(s): R31.29 - Other microscopic hematuria Category: Medical Plan Continue alfuzosin 10 mg Follow-up in 1 year PSA prior Orders: Orders AMB Urinalysis Automated Today Z13.9 - Encounter for screening, unspecified PSA,Total (Free>4and<10) 11 Months N40.1 - Benign prostatic hyperplasia with lower urinary tract symptoms, Z12.5 - Encounter for screening for malignant neoplasm of prostate Patient Instructions: The patient had an opportunity to ask questions regarding treatment plan. The patient expressed understanding and agreement with the above treatment plan. The patient is aware they should contact our office by phone for worsening of their current condition or the appearance of new symptoms. Compliance is encouraged with any medications and followup testing that is ordered. It is a privilege to be allowed the opportunity to participate in the urologic care of your patient. If you have any questions or concerns regarding treatment for the above conditions please do not hesitate to contact me. The office telephone contact is [phone]. This note is constructed in part using voice recognition software. While every effort has been made to ensure accuracy supervisor microwave errors may have been included. Yours sincerely, Violeta Delgado MD Coding Level of Care Code Est Pt Level 4 (74797) Complex EM visit Add On G2211 Diagnoses BPH loc w urin obs/LUTS N40.1 Screening PSA (prostate specific antigen) Z12.5 Microscopic hematuria R31.29 CPT Codes Post Residual Void - PVR CPT Code: 76175-Adul Void Residual by ultrasound ([id number])
--- OUTSIDE RECORDS SUMMARY | 2024-04-27 10:21 | XMS_ITS | Encounter Summary ---
Author Organization [facility] Address [address] [place] [address] Care Team Providers Care Courtesy Driver Name Role Phone Pcp, No Primary Care Provider Unavailabl e Encounter Details Date Type Department Care Team (Latest Contact Info) Description 04/20/2024 Travel Social History Tobacco Use Types Packs/Day Years Used Date Smoking Tobacco: Never Smokeless Tobacco: Never Alcohol Use Standard Drinks/Week Comments Not Currently 0 (1 standard drink = 0.6 oz pur e alcohol) Sex and Gender Information Value Date Recorded Sex Assigned at Not on file Gender Identity Not on file Sexual Orientation Not on file documented as of this encounter Plan of Treatment Not on file documented as of this encounter Visit Diagnoses Not on filedocumented in this encounter Care Teams Courtesy Driver Relationship Specialty Start Date End Date Pcp, No PCP - General General Medicine 04/02/24 documented as of this encounter
--- OUTSIDE RECORDS SUMMARY | 2024-04-27 10:21 | XMS_ITS | Clinical Summary ---
Author Organization [facility] Address [address] [place] [id number] Care Team Providers Care Staff Attorney Name Role Phone Pcp, No Primary Care Provider Unavailabl e Allergies No known active allergies Medications Medication Sig Dispensed Refills Start Date End Date Status apixaban (Eliquis) 5 MG tablet Take 1 tablet (5 mg total) by mouth 2 (two) times a day. Active hydroCHLOROthiazide (HYDRODIURIL) 50 MG tablet Take 1 tablet (50 mg total) by mouth daily. Active fenofibrate micronized (LOFIBRA) 134 MG capsule Take 1 capsule (134 mg total) by mouth daily. 04/13/2024 Active atorvastatin (LIPITOR) 20 MG tablet Take 1 tablet (20 mg total) by mouth nightly. 03/19/2024 Active lisinopril (PRINIVIL,ZeSTRIL) 40 MG tablet Take 1 tablet (40 mg total) by mouth daily. 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); Vision loss of right eye; Visual field defect nasal step, right from Last 3 Months Family History Medical History Relation Name Comments Heart failure Mother Relation Name Status Comments Brother Alive Father Alive Mother Social History Tobacco Use Types Packs/Day Years Used Date Smoking Tobacco: Never Smokeless Tobacco: Never Tobacco Cessation:Counseling Given: Not Answered Alcohol Use Standard Drinks/Week Comments Not Currently 0 (1 standard drink = 0.6 oz pur e alcohol) Sex and Gender Information Value Date Recorded Sex Assigned at Not on file Gender Identity Not on file Sexual Orientation Not on file Last Filed Vital Signs Vital Sign Reading Time Taken Comments Blood Pressure 122/81 04/20/2024 11:00 AM EST Pulse 71 04/20/2024 11:00 AM EST Temperature 36.4 ??C (97.5 ??F) 04/20/2024 11:[address] Respiratory Rate - - Oxygen Saturation - - Inhaled Oxygen Concentration - - Weight 126 kg (278 lb) 04/20/2024 11:00 AM EST Height 176 cm (5' 9.29 ) 04/20/2024 11:00 AM EST Body Mass Index 40.71 04/20/2024 11:00 AM EST Plan of Treatment Health Maintenance Due Date Last Done Comments Hepatitis C Virus Screening 1955 DTaP/Tdap/Td Vaccines (1 - Tdap) 10/11/1975 Colonoscopy 2001 Pneumococcal Vaccines 50+ (1 of 1 - PCV) 2006 Zoster (Shingles) Vaccine (1 of 2) 2006 RSV Vaccine 60 years and older and Patients (1 - Risk 60-74 years 1-dose series) 2016 Influenza Vaccine 10/24/2023 12/02/2019 COVID-19 Vaccine (3 - 2023-2 5 season) 2023 06/23/2020, 06/02/2020 Hepatitis B Vaccines Aged Out No long er eligible based on patient's age to complete this topic Procedures Procedure Name Priority Date/Time Associated Diagnosis Comments COLOR FUNDUS PHOTOGRAPHY - OU - BOTH EYES Routine 04/20/2024 2:19 PM EST Sector visual field defect of both eyes Optic nerve drusen, bilateral Vision loss of right eye OCT, OPTIC NERVE - OU - BOTH EYES Routine 04/20/2024 2:09 PM EST Sector visual field defect of both eyes Optic nerve drusen, bilateral Vision loss of right eye AUTOMATED VISUAL FIELD, EXTENDED - OU - BOTH EYES Routine 04/20/2024 2:09 PM EST Sector visual field defect of both eyes Optic nerve drusen, bilateral Vision loss of right eye from Last 3 Months Results * COLOR FUNDUS PHOTOGRAPHY - OU - BOTH EYES (04/20/2024 2:19 PM EST) Narrative [facility] - 04/20/2024 2:19 PM EST Sandy Mora, DO ? 04/20/2024 ??2:20 PM [employer] [id number] Instrument: Zeiss Clarus Indication: ??Visual disturbance Findings: ?? The right eye reveals pinkish-orange optic nerve that is sharply contoured. ??There is no disc edema, optic disc pallor or peripapillary hemorrhage. ??There is slight increase pigment inferiorly in the right eye, confirmed buried drusen on autofluorescence. ??There are no cotton wool spots. ??Macula with ERM. ??The vessels appear normal without tortuosity or attenuation. ?? The left eye reveals pinkish-orange optic nerve that is sharply contoured. ??There is no disc edema, optic disc pallor or peripapillary hemorrhage. ??There are no cotton wool spots. ?? Macula appears normal. ??The vessels appear normal without tortuosity or attenuation. ?? Sandy Mora DO OPHTHALMOLOGY SERVIC ES ORDERABLES [facility] * OCT, OPTIC NERVE - OU - BOTH EYES (04/20/2024 2:09 PM EST) Narrative [facility] - 04/20/2024 2:09 PM EST Sandy Mora, DO ? 04/20/2024 ??2:19 PM Optical coherence tomography (OCT) - [id number] Instrument: [employer] Indication: ??Visual disturbance Location: Optic nerve head and macula Findings and interpretation: OCT was performed in both eyes and showed that the retinal nerve fiber layer was of ??normal thickness in both eyes, though asymmetric and reduced in the left eye (81 vs 98 microns). ??There is drusen, right eye. ?? There is abnormal average thickness of the ganglion cells due to presence of ERM. Sandy Mora DO OPHTHALMOLOGY SERVIC ES ORDERABLES [facility] * AUTOMATED VISUAL FIELD, EXTENDED - OU - BOTH EYES (04/20/2024 2:09 PM EST) Narrative [facility] - 04/20/2024 2:09 PM EST Sandy Mora, DO ? 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 Sandy Mora DO OPHTHALMOLOGY SERVIC ES ORDERABLES Performing Organization Address [facility]/ZIP Co de Phone Number [facility] from Last 3 Months Care Teams Staff Attorney Relationship Specialty Start Date End Date Pcp, No PCP - General General Medicine 04/02/24
--- OUTSIDE RECORDS SUMMARY | 2024-04-27 10:21 | XMS_ITS | Encounter Summary ---
Author Organization [facility] Address [address] [place] [address] Care Team Providers Care Solutions Development Analyst Name Role Phone Pcp, No Primary Care Provider Unavailabl e Reason for Visit * Reason Comments New Patient Pt referred by Dr. Stephanie teague for VF defect right eye No visual complaints. No pain or discomfort * Consultation (Routine) - Closed Specialty Diagnoses / Procedures Referred By Contmassiel t Referred To Contact Neurology Diagnoses Disorder of optic nerve of right eye Vision loss of right eye Visual field defect nasal step, right Sabrina Santillan MD [address] [facility] [address] [place] [address] Sandy Mora DO [address] [place] [id number] Referral ID Status Reason Start Date Expiration Date V isits Requested Visits Authorized [id number] Closed Consult 03/16/2024 03/17/2025 1 1 Encounter Details Date Type Department Care Team ([facility] st Contact Info) Description 04/20/2024 11:00 AM EST Consult [facility] Neurology Ophthalmology [place] [address] [id number] Sandy Mora DO [address] [place] [phone] 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 This is more prominent in the right eye which is the cause of your visual field defect. Pleas also note that drusen can grow slowly over time. There is no surgery or medication for this. It can be inherited. Pleasekeep hydrated and have routine eye exams with pressure checks. This will reduce the chance of further vision loss. Daily Blepharitis Care: Warm compresses for 3-5 minutes twice daily: Apply a clean, warm washcloth over a closed eyelids for 3-5 minutes to help break down oils that may be clogging the eyelid glands. Eyelid scrubs: Use eyelid scrubs (or baby shampoo on warm towel) to gently rub along the length of the upper and lower eyelids for 30 seconds. Rinse. Artificial tears: Use preservative free artificial tears at least 3-4 times daily in both eyes. Recommend Systane Complete PF or ReFresh Demetrio 3 documented in this encounter Progress Notes * Sandy Mora DO - 04/20/2024 12:28 PM EST Neuro-Ophthalmology Visit Chief Complaint Patient presents with New Patient Pt referred by Dr. Santillan for VF defect right eye No visual complaints. No pain or discomfort Assessment & Plan Walter Callaway is a 68 y.o. male who presents today with visual field defect of the right eye secondaryto optic nerve head drusen. Exam summary: Neuro-ophthalmic examination is significant for normal best corrected visual acuity of both eyes with no dyschromatopsia and no relative APD. Automated perimetry (HVF 30-2, Stim III, RONY- FAST) revealed superonasal defect of the right eye, normal left VF. Ductions and versions are full. On strabismus testing, he is orthophoric. Intraocular pressure was 14 in the right eye and 17 in the left eye using icare.. Dilated funduscopic examination of his eyes shows and no holes, detachments or tears. OCT revealed normal RNFL bilaterally, though this is asymmetric and decreased on the left eye, whichsuggest prior injury. On autofluorescence, there is drusen bilaterally that is inferior in both eyes but more prominent on the left. Impression: Optic nerve head drusen, bilateral. Confirmed on OCT. With autofluorescence, there is drusen inferiorly in the right eye which coincides with the slight discoloration/pigmentation seen of fundoscopy.I have discussed with Walter and his that there is no treatment for this. While maintaining a normal cholesterol is important, there is no direct evidence supporting the correlation to drusen. Right superior visual field defect, secondary to #1. The prominence of the drusen is infratemporally which would explain his superonasal defect. For the left eye, there is tiny inferonasal drusen. Dry Eye Syndrome, bilateral. There is punctate epithelial erosions inferiorly in both eyes, L>R,as well as decreased tear breakup time and low tear film. There is also mild blepharitis. Blepharitis. Plan: 1. Sector visual field defect of both eyes - Automated Visual Field, Extended - OU - Both Eyes - OCT, Optic Nerve - OU - Both Eyes - Color Fundus Photography - OU - Both Eyes No follow-ups on file. Patient Instructions Drusen and visual field defect You have drusen, which are calcified lipid deposits, which are present in both eyes. This is more prominent in the right eye which is the cause of your visual field defect. Pleas also note that drusen can grow slowly over time. There is no surgery or medication for this. It can be inherited. Pleasekeep hydrated and have routine eye exams with pressure checks. This will reduce the chance of further vision loss. Daily Blepharitis Care: Warm compresses for 3-5 minutes twice daily: Apply a clean, warm washcloth over a closed eyelids for 3-5 minutes to help break down oils that may be clogging the eyelid glands. Eyelid scrubs: Use eyelid scrubs (or baby shampoo on warm towel) to gently rub along the length of the upper and lower eyelids for 30 seconds. Rinse. Artificial tears: Use preservative free artificial tears at least 3-4 times daily in both eyes. Recommend Systane Complete PF or ReFresh Demetrio 3 A total of 55 minutes was spent on this visit (not including of procedures), with 10 minutes spent reviewing previous notes, labs and imaging prior to visit. There was 40 minutes devoted to intra-service time. And an additional 5 minutes was spent on post-service time. Subjective Walter Callaway is a 68 y.o. 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 Walter presents today for visual field defect. He notes he has not experienced any visual disturbance though he was found to have field defect along with optic atrophy on a routine eye exam with his marketing account executive Dr Sabrina Santillan. He underwent an MRI brain which did not show any cause for his visual field defect. As for his medical history, he has a history of hypertension and hyperlipidemia for which he takes medications. He does report a history of TIA in 2013 where he had transient double vision lasting several hours. No other history of double vision. 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 In 2019 or 2019, he had pulmon shannon emboli. REVIEW OF SYSTEMS: A full system review was obtained and is unremarkable with the exception as noted above in the history and symptoms highlighted below: Constitutional (fever, weight loss, fatigue) Eyes (decreased vision, double vision, dryness, pain) Ears, Nose, Mouth, and Throat (hearing problems, runny nose, sore throat) Cardiovascular (chest pain, palpitations, edema) Respiratory (shortness of breath, wheezing, coughing) Gastrointestinal (nausea, vomiting, abdominal pain) Genitourinary (painful urination, frequency, incontinence) Musculoskeletal (joint pain, muscle spasm, stiffness) Integumentary (rashes, color change, itching) Neurological (headaches, dizziness, numbness, weakness) Psychiatric (depression, memory loss, hallucinations) Endocrine (excessive thirst, sweating, heat/cold intolerance) Hematologic/Lymphatic (bruising, easy bleeding, swollen lymph nodes) Allergic/Immunologic (watery eyes, hives, environmental, immune-compromised) History Past Medical History: Diagnosis Date High cholesterol Hypertension Past Surgical History: Procedure Laterality Date HERNIA REPAIR Family History Problem Relation Age of Onset Heart failure Mother No Known Allergies Current Outpatient Medications on File Prior to Visit Medication Sig Dispense Refill apixaban (Eliquis) 5 MG tablet Take 1 tablet (5 mg total) by mouth 2 (two) times a day. atorvastatin (LIPITOR) 20 MG tablet Take 1 tablet (20 mg total) by mouth nightly. fenofibrate micronized (LOFIBRA) 134 MG capsule Take 1 capsule (134 mg total) by mouth daily. hydroCHLOROthiazide (HYDRODIURIL) 50 MG tablet Take 1 tablet (50 mg total) by mouth daily. lisinopril (PRINIVIL,ZeSTRIL) 40 MG tablet Take 1 tablet (40 mg total) by mouth daily. Multiple Vitamin (MULTIVITAMIN ADULT PO) Orally No current facility-administered medications on file prior to visit. Objective Vitals: 04/20/24 1100 BP: 122/81 Pulse: 71 Temp: 97.5 ??F (36.4 ??C) Weight: 126 kg (278 lb) Height: 1.76 m (5' 9.29 ) Base Eye Exam Visual Acuity (Snellen - Linear) Right Left Dist cc 20/20 -2 20/20 -1 Near cc J1+ J1+ Correction: Glasses Tonometry (icare, 11:38 AM) Right Left Pressure 14 17 Pupils Dark Light Shape React APD Right 4 2 Round Brisk None Left 4 2 Round Brisk None Additional Tests Color Right Left Ishihara 02/02 02/02 Stereo Fly: + Animals: 3/3 Circles: 3/9 Slit Lamp and Fundus Exam Slit Lamp Exam Right Left Lids/Lashes Blepharitis Blepharitis Conjunctiva/Sclera White and quiet White and quiet Cornea dec TBUT, low tear film, spk dec TBUT, low tear film, spk, Iris Round and reactive Round and reactive Lens 1+ -2 +Nuclear sclerosis 1+ -2 +Nuclear sclerosis Fundus Exam Right Left Disc Normal, though incr pigment inferior Normal Macula Epiretinal membrane with traction Normal Vessels Normal Normal Periphery Normal Normal Refraction Wearing Rx Sphere Cylinder [place] Add Right +1.75 -0.25 005 +2.50 Left +2.25 +2.50 Age: few yrs Type: progressives Manifest Refraction Sphere Cylinder [place] Right +2.50 -0.25 076 Left +3.50 -0.50 090 AR not a true manifest @neuroexam@ Lab and Neuroimaging Results: No results found for: WBC , HEMOGLOBIN , HEMATOCRIT , MCV No results found for: SODIUM , POTASSIUM , CHLORIDE , CO2VEN , ANIONGAP , GLUCOSE , BUN , CREATININE , ALBUMIN , AGRATIO , CALCIUM , AST No results found for: TSH No results found for: T4FREE No results found for: ESR No results found for: CRP No results found for: [id number] No results found for: FOLATE No results found for: DAYANARA No results found. documented in this encounter Procedure Notes * Sandy Mora DO - 04/20/2024 2:19 PM ESTAssociated Order(s): COLOR FUNDUS PHOTOGRAPHY - OU - BOTH EYES Procedure(s): COLOR FUNDUS PHOTOGRAPHY - OU - BOTH EYES Pre-Procedure Diagnose(s): Sector visual field defect of both eyes Fundus Photography [id number] Instrument: Zeiss Clarus Indication: Visual disturbance Findings: The right eye reveals pinkish-orange optic nerve that is sharply contoured. There is no disc edema,optic disc pallor or peripapillary hemorrhage. There is slight increase pigment inferiorly in the right eye, confirmed buried drusen on autofluorescence. There are no cotton wool spots. Macula with ERM. The vessels appear normal without tortuosity or attenuation. The left eye reveals pinkish-orange optic nerve that is sharply contoured. There is no disc edema, optic disc pallor or peripapillary hemorrhage. There are no cotton wool spots. Macula appears normal. The vessels appear normal without tortuosity or attenuation. 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 There is drusen, right eye. There is abnormal average thickness of the ganglion cells dueto presence of ERM. 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 documented in this encounter Plan of Treatment Not on file documented as of this encounter Procedures Procedure Name Priority Date/Time Associated Diagnosis [...] drusen, bilateral Vision loss of right eye documented in this encounter Results * COLOR FUNDUS PHOTOGRAPHY - OU - BOTH EYES (04/20/2024 2:19 PM EST) Narrative [facility] - 04/20/2024 2:19 PM EST Sandy Mora, DO ? 04/20/2024 ??2:20 PM Fundus Photography [id number] Instrument: Zeiss Clarus Indication: ??Visual disturbance Findings: [...] or attenuation. ?? Sandy Mora DO OPHTHALMOLOGY SERVLongfan Media ORDERABLES Performing Organization Address [facility] Co de Phone Number [facility] * OCT, OPTIC NERVE - OU - BOTH EYES (04/20/2024 2:09 PM EST) Narrative [facility] NEURO OPH - 04/20/2024 2:09 PM EST Sandy Mora, DO ? 04/20/2024 ??2:19 PM Optical coherence tomography (OCT) - 36492 Instrument: Zeiss Buy With Fetchrus Indication: ??Visual disturbance Location: Optic nerve head [...] Organization Address [facility]/ZIP Co de Phone Number [facility] * AUTOMATED VISUAL FIELD, EXTENDED - OU - BOTH EYES (04/20/2024 2:09 PM EST) Narrative [facility] - 04/20/2024 2:09 PM EST Sandy Mora, DO ? 04/20/2024 ??2:09 PM [place] Visual Field Testing (11321) 30-2 (Stim III) RONY- FAST Indication: Visual disturbance Findings/: Testing in both eyes showed good reliability indices Interpretation: ??full VF left eye, right VF with superonasal defect which is ??similar to prior VF from his marketing account executive. 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
== END 2024-04-27 10:24 | disposition home or self-care (01) ==
PROVIDERS: PCP Nurse Practitioner Family; Visit Provider Urology
DX: N40.1 Benign prostatic hyperplasia with lower urinary tract symptoms (principal); Z12.5 Encounter for screening for malignant neoplasm of prostate; R31.29 Other microscopic hematuria; Z13.9 Encounter for screening, unspecified
CPT/HCPCS: 99214; G2211

== ENCOUNTER → 2024-04-27 09:49 | Outpatient (BNVA) | payer MEDICARE, OTHER, SELFPAY | PROVIDERS: PCP Nurse Practitioner Family; Visit Provider Urology | DX: Z12.5 Encounter for screening for malignant neoplasm of prostate (principal); N40.1 Benign prostatic hyperplasia with lower urinary tract symptoms; R31.29 Other microscopic hematuria | CPT/HCPCS: 51798; 81003; 99212 ==

== ENCOUNTER 2024-06-18 06:53 | Outpatient (REF) | payer MEDICARE, OTHER, SELFPAY ==
[2024-06-18 10:17] LABS: Alanine Aminotransferase 47 U/L (0-40); Albumin Level 3.9 g/dL (3.5-5.0); Alkaline Phosphatase 32 U/L (39-117); Anion Gap 10 (12-20); Aspartate Amino Transferase 29 U/L (5-37); Bilirubin Total 0.4 mg/dL (0.0-1.0); Blood Urea Nitrogen 20 mg/dL (9-16); Carbon Dioxide 29 mmol/L (22-29); Chloride 105 mmol/L (96-108); Cholesterol 126 mg/dL (<200); Estimated Glomerular Filt Rate > 60; Glucose Fasting 89 mg/dL (60-99); HDL Cholesterol 28 mg/dL (>40); LDL Cholesterol Calculated 75 mg/dL (<100); Potassium 3.5 mmol/L (3.3-5.1); Sodium 140 mmol/L (135-145); Total Protein 6.4 g/dL (6.5-8.0); Triglycerides 117 mg/dL (<150)
== END 2024-06-18 06:54 | disposition home or self-care (01) ==
LOC: HO.HMGCLDS 06:53
PROVIDERS: PCP Nurse Practitioner Family; Visit Provider Nurse Practitioner Family
DX: E78.5 Hyperlipidemia, unspecified (principal)
CPT/HCPCS: 36415; 80053; 80061

== ENCOUNTER 2024-08-27 09:10 | Outpatient (AMB) | payer MEDICARE, OTHER, SELFPAY ==
--- NOTE | 2024-08-27 09:14 | MHC.PC.OV ---
Vital Signs 08/27/24 09:15 Height 5 ft 10 in Weight 274 lb 6 oz BMI 39.4 BP 128/80 Blood Pressure Location Lt brachial Position Sitting Pulse 96 Pulse Source Pulse Oximeter Temp 97.7 F Temp Source Oral Pulse Oximetry (%) 99 Oxygen Delivery Method Room Air Intake Visit Reasons: ANNUAL PE Butcher Required: No Accompanied by: Self / Same As Patient Allergies seasonal Allergy (Uncoded 08/27/24 09:59) Unknown Medication List - Last Reconciled 08/27/24 by EZRA Carlin- alfuzosin ER 10 mg PO DAILY apixaban (Eliquis) 2.5 mg PO Q12H atorvastatin 20 mg PO BEDTIME 90 days fenofibrate micronized 134 mg PO DAILY hydrochlorothiazide 50 mg PO QAM lisinopril 40 mg PO DAILY Tobacco use date assessed: 08/27/24 Fall risk assessment: No Falls in past year Last assessed Fall Risk: 08/27/24 Dental Screening Dental Screen Date: 08/27/24 Did you have a dental visit in the last 12 months?: Yes Did you have a dental problem in the last 6 months where you did not have access to dental care?: No Was dental information given to patient?: Patient has dentist HPI ANNUAL PE HPI Details History of Present Illness The patient is a 68-year-old male presenting with peripheral neuropathy. He notes ongoing neuropathy in his bilateral extremities, primarily affecting his feet. To assess this condition further, EMG and nerve conduction studies are planned. Vitamin B12 and B6 levels, which have been checked previously, will undergo re-evaluation. The patient denies additional symptoms including chest discomfort, respiratory distress, abdominal pain, altered bowel patterns, or the presence of blood in stools. With respect to dermatologic evaluations, the patient regularly consults a mac artist owing to his fair complexion and numerous lesions on the upper torso especially. These are characterized as dry, papular, and scattered in a range of sizes and shapes. Continuous dermatologic follow-up is maintained due to these issues. Health Maintenance - Regular follow-up with a urologist for PSA monitoring. - Ongoing dermatologic evaluations for skin lesions. - Screening up to date. Social History Review of Systems - Cardiovascular: Denies chest pain. - Respiratory: Denies shortness of breath. - Gastrointestinal: Denies abdominal pain, constipation, diarrhea, and blood in stool. Physical Exam General: Cooperative, healthy appearing, comfortable, no acute distress and well developed Orientation: Patient oriented x3 Limitations: No limitations Head: Normal to inspection Ears: Hearing grossly normal bilaterally Nose: Normal external nose present Face and sinus: Normal facial exam Eyes: Appearance normal, both eyes and all related structures Neck: Normal visual inspection and Yes full ROM Respiratory: Normal respiratory effort and able to speak in complete sentences. Clear to auscultation bilaterally Cardiovascular: Regular rate and rhythm. Normal S1 and S2 GI: Normal to inspection. Soft to palpation and nontender Skin: Several different lesions throughout his upper torso, especially dry, more popular throughout, scattered, singular, range in size and shape Neuro: Patient oriented x3 Extremities: History of neuropathy with his bilateral lower extremities, mainly feet. Normal to inspection Results Plan I plan to conduct electromyography and nerve conduction studies to evaluate the neuropathy affecting the patient's bilateral extremities, mainly his feet, and to retest his vitamin and B6 levels. Regular follow-up with the mac artist will be necessary for ongoing skin lesion management, along with urologist visits for PSA monitoring. Lifestyle interventions for obesity will be advised to promote weight loss. Discussion Notes I discussed the importance of further neurological assessment using electromyography and nerve conduction studies with the patient to clarify the nature of his peripheral neuropathy. Additionally, I reiterated the necessity of rechecking vitamin B12 and B6 levels to rule out deficiencies that may influence neuropathy. The patient was informed of the ongoing need for dermatologic follow-up due to his fair skin and prevalent lesions to prevent complications. We reviewed continuous PSA monitoring with his urologist to manage risks related to prostate health. The importance of addressing obesity through dietary and lifestyle changes was communicated to reduce the risk of associated morbidities. Patient Instructions - Schedule and complete electromyography and nerve conduction tests. - Recheck vitamin B12 and B6 levels as advised. - Continue regular dermatologic and urologic evaluations. - Follow a healthy lifestyle to assist with weight management. - Contact a healthcare provider if new symptoms develop or existing symptoms worsen. [facility] Medical History Fatty liver Squamous cell carcinoma of skin CVA (cerebral vascular accident) HTN (hypertension) Erectile dysfunction Bilateral pulmonary embolism (~05/2019) GERARDO (obstructive sleep apnea) Hyperlipidemia Surgical History Hx of cystoscopy H/O surgical biopsy (~01/24/23) Hx of tonsillectomy H/O colonoscopy History of umbilical hernia repair Family History Father No problems noted. Mother CAD (coronary artery disease) Afib Paternal Uncle Skin cancer (melanoma) Social History Household Members: Spouse Housing: House Housing Other:: patient refused Are you a primary point of care specialist to a significant other at home: No Do you presently have visiting nurse or other home services: No Alcohol intake: current Alcohol intake frequency: a few times a week Patient Tobacco Use Status: Never used Tobacco e-Cigarette/Vaping Use: Never Used Second Hand Smoke Exposure: No service: No Current occupational status: employed and retired Cognitive needs: No Hearing needs: No Vision needs: No Questionnaire PHQ-9 Over the last 2 weeks, how often have you been bothered by any of the following problems? 1. Little interest or pleasure in doing things: not at all 2. Feeling down, depressed, or hopeless: not at all 3. Trouble falling or staying asleep, or sleeping too much: not at all 4. Feeling tired or having little energy: not at all 5. Poor appetite or overeating: not at all 6. Feeling bad about yourself - or that you are a failure or have let yourself or your family down: not at all 7. Trouble concentrating on things, such as reading the newspaper or watching television: not at all 8. Moving or speaking so slowly that other people could have noticed. Or the opposite - being so fidgety or restless that you have been moving around a lot more than usual: not at all 9. Thoughts that you would be better off or of hurting yourself in some way: not at all Total score: 0 Depression Screening Interpretation: Negative Depression Screening Done: Yes 81742 - PHQ-9 Billing: Yes Source: Developed by Drs. Dieudonne Alonso, Bev Vu, Julien Schofield and colleagues, with an educational luciano from [employer]. Thrive Questionnaire Date Thrive assessed: 06/05/25 I am a: Patient What is your living situation today?: I choose not to answer this question Within the past 12 months, did the food you bought not last and you didn't have the money to get more?: I choose not to answer this question Within the past 12 months, did you worry whether your food would run out before you got money to buy more?: I choose not to answer this question Do you have trouble paying for medicines?: I choose not to answer this question Do you have trouble getting transportation to medical appointments?: I choose not to answer this question Do you have trouble paying your heating and electricity bill?: I choose not to answer this question Do you have trouble taking care of your child, family member or friend?: I choose not to answer this question Do you have trouble with day-to-day activities such as bathing, preparing meals, shopping, managing finances, etc.?: I choose not to answer this question Are you currently unemployed and looking for a job?: I choose not to answer this question Are you interested in more education?: I choose not to answer this question Please select the resources that you would like help with: None Currently or been in a relationship where the following occur: I choose not to answer THRIVE Score: 0 AUDIT C Alcohol Use Questionnaire (AUDIT-C) 1. How often do you have a drink containing alcohol?: Never 3. How often do you have six or more drinks on one occasion?: Never Total Score: 0 Score Reviewed/Action Taken: Yes DIEGO-7 AMB Questionnaire DIEGO-7 Date DIEGO - 7 assessed: 08/27/24 Feeling nervous, anxious, or on edge: 0 = Not at all Not being able to stop or control worryin = Not at all Worrying too much about different things: 0 = Not at all Trouble relaxin = Not at all Being so restless that it is hard to sit still: 0 = Not at all Becoming easily annoyed or irritable: 0 = Not at all Feeling afraid as if something awful might happen: 0 = Not at all Total DIEGO-7 score (0-4 normal; 5-9 mild; 10-14 moderate; 15-21 severe): 0 Source: Developed by Drs. Dieudonne Alonso, Bev Vu, Julien Schofield and colleagues, with an educational luciano from [employer]. DIEGO-7 Assessment Billing DIEGO-7 Assessment Tool: DIEGO-7 Assessment 56317 Physical exam (Primary Care) Vital Signs: Last Vital Signs Temp 97.7 F 08/27/24 09:15 Pulse 96 08/27/24 09:15 BP 128/80 08/27/24 09:15 Pulse Ox 99 08/27/24 09:15 Oxygen Delivery Method Room Air 08/27/24 09:15 BMI result Body Mass Index 39.4 Tobacco/Smoking Status: Tobacco use Status Tobacco use date assessed 08/27/24 08/27/24 09:21 Patient Tobacco Use Status Never used Tobacco 08/27/24 09:21 e-Cigarette/Vaping Use Never Used 08/27/24 09:21 PHQ-9: PHQ-9 Score PHQ-9: Total score 0 08/27/24 09:25 Depression Screening Interpretation: Negative Thrive Assessment: Date of Thrive Assessment Date Thrive assessed 08/27/24 08/27/24 09:21 Currently or been in a relationship where the following occur: I choose not to answer Coding Level of Care Code Est Pt Prev Care >65y(90145) Diagnoses Physical exam Z00.00 Neuropathy G62.9 Additional Codes DIEGO-7 Assessment Billing - DIEGO-7 Assessment Tool: DIEGO-7 Assessment 07541 ([id number]) PHQ-9 - 83793 - PHQ-9 Billing: Yes ([id number]) Assessment & Plan Assessment & Plan (1) Physical exam: Code(s): Z00.00 - Encounter for general adult medical examination without abnormal findings Category: Medical (2) Neuropathy: Code(s): G62.9 - Polyneuropathy, unspecified Category: Medical Plan . Orders: Orders Complete Blood Count Auto Diff Today Z00.00 - Encounter for general adult medical examination without abnormal findings UA CC w/rflx Micro + Cult Today Z00.00 - Encounter for general adult medical examination without abnormal findings Lipid Panel Today Z00.00 - Encounter for general adult medical examination without abnormal findings Vitamin B12 and Folate Today G62.9 - Polyneuropathy, unspecified Lyme IgG/IgM w/reflex to WB Today G62.9 - Polyneuropathy, unspecified Comprehensive [place]. Panel Fast Today Z00.00 - Encounter for general adult medical examination without abnormal findings TSH reflex Free T4 Today Z00.00 - Encounter for general adult medical examination without abnormal findings NE electromyogram (EMG) Today G62.9 - Polyneuropathy, unspecified NE nerve conduction velocity Today G62.9 - Polyneuropathy, unspecified Vitamin B6 Today G62.9 - Polyneuropathy, unspecified Tick-borne Disease Molecular Today G62.9 - Polyneuropathy, unspecified
[2024-08-27 09:15] VITALS: BP 128/80; PULSE 96; TEMP 36.5; O2SAT 99; BMI 39.4
== END 2024-08-27 09:54 | disposition home or self-care (01) ==
LOC: HO.HMCC 09:11
PROVIDERS: PCP Nurse Practitioner Family; Visit Provider Nurse Practitioner Family
DX: Z00.00 Encounter for general adult medical examination without abnormal findings (principal); G62.9 Polyneuropathy, unspecified

== ENCOUNTER 2024-08-27 09:10 | Outpatient (REF) | payer MEDICARE, OTHER, SELFPAY ==
[2024-08-27 13:19] LABS: Appearance Urine Clear; Color Urine Yellow; Glucose Urine UA Negative (Negative); Leukocyte Esterase Urine Negative (Negative); Nitrite Urine Negative (Negative); Specific Gravity - Urine 1.015 (1.005-1.025); Urine Blood Negative (Negative); Urine Ketones Negative (Negative); Urine Protein Negative (Neg-Trace)
[2024-08-27 13:39] LABS: Basophils Absolute Auto 0.1 X10*3/uL (0.0-0.2); Basophils Percent Auto 0.9 % (0-2); Eosinophils Absolute Auto 0.3 X10*3/uL (0.0-0.4); Eosinophils Percent Auto 4.5 % (0-4); Hematocrit 40.6 % (42.0-52.0); Hemoglobin 13.7 g/dl (14.0-18.0); Imm Gran Abs Auto 0.02 X10*3/uL (0.00-0.03); Imm Gran Pct Auto 0.3 % (0.0-0.4); Lymphocytes Percent Auto 30.5 % (20-40); MANUAL DIFF FLAG NO; Mean Corpuscular HGB Conc 33.7 g/dl (31.0-36.0); Mean Corpuscular Hemoglobin 29.3 pg (27.0-33.0); Mean Corpuscular Volume 86.8 fL (80.0-98.0); Mean Platelet Volume 12.3 fL (9.4-12.4); Monocytes Absolute Auto 0.6 X10*3/uL (0.1-1.2); Monocytes Percent Auto 8.9 % (2-11); Neutrophils Absolute Auto 3.5 x10*3/uL (2.0-8.3); Neutrophils Percent Auto 54.9 % (45-73); Platelet Count 199 X10*3/uL (160-400); Red Blood Count 4.68 X10*6/uL (4.60-5.80); Red Cell Distribution Width 13.2 % (11.0-16.0); White Blood Count 6.4 X10*3/uL (4.8-10.8)
[2024-08-27 14:59] LABS: Alanine Aminotransferase 41 U/L (0-40); Albumin Level 4.1 g/dL (3.5-5.0); Alkaline Phosphatase 31 U/L (39-117); Anion Gap 8 (12-20); Aspartate Amino Transferase 36 U/L (5-37); Bilirubin Total 0.6 mg/dL (0.0-1.0); Blood Urea Nitrogen 21 mg/dL (9-16); Calcium 9.5 mg/dL (8.4-10.2); Carbon Dioxide 30 mmol/L (22-29); Chloride 107 mmol/L (96-108); Cholesterol 134 mg/dL (<200); Estimated Glomerular Filt Rate > 60; Glucose Fasting 90 mg/dL (60-99); HDL Cholesterol 29 mg/dL (>40); LDL Cholesterol Calculated 85 mg/dL (<100); Potassium 3.8 mmol/L (3.3-5.1); Sodium 141 mmol/L (135-145); Total Protein 6.6 g/dL (6.5-8.0); Triglycerides 101 mg/dL (<150)
[2024-08-27 15:18] LABS: TSH reflex Free T4 2.48 uIU/mL (0.32-4.0)
[2024-08-27 15:34] LABS: Folate 13.3 ng/mL (> or = 4.0); Vitamin B12 533 pg/mL (200-900)
[2024-08-28 10:30] LABS: Lyme Abs Screen <0.90 index
[2024-08-28 14:42] LABS: A. Phagocytphilium DNA,RT-PCR NOT DETECTED (NOT DETECTED); Babesia Microti DNA, RT-PCR NOT DETECTED (NOT DETECTED); Borrelia Miyamotoi,DNA RT-PCR NOT DETECTED (NOT DETECTED); E.Chaffeensis DNA RT-PCR NOT DETECTED (NOT DETECTED); Lyme(Borrelia ssp)DNA RT-PCR NOT DETECTED (NOT DETECTED)
[2024-09-01 06:14] LABS: Vitamin B6 26.5 ng/mL (2.1-21.7)
== END 2024-08-27 09:11 | disposition home or self-care (01) ==
LOC: HO.HMGCLDS 09:10
PROVIDERS: PCP Nurse Practitioner Family; Visit Provider Nurse Practitioner Family
DX: Z00.00 Encounter for general adult medical examination without abnormal findings (principal); G62.9 Polyneuropathy, unspecified
CPT/HCPCS: 36415; 80053; 80061; 81003; 82607; 82746; 84207; 84443; 85025; 86617; 86618; 87468; 87469; 87478; 87484; 87798; 96127; 99397

== ENCOUNTER 2024-10-20 09:50 | Outpatient (REF) | payer MEDICARE, OTHER, SELFPAY ==
--- NOTE | 2024-10-20 09:54 | EMG_ITS ---
Please see the attached neurophysiology report MTDD
--- OUTSIDE RECORDS SUMMARY | 2024-10-20 10:27 | XMS_ITS ---
Author Name [facility] Organization Unknown History of Medication Use Medication Directions Dispensed Refills Start Date End Date Stat us fenofibrate micronized (LOFIBRA) 134 MG capsule Take 1 capsule (134 mg total) by mouth daily. 04/13/2024 active lisinopril (PRINIVIL,ZeSTRIL) 40 MG tablet Take 1 tablet (40 mg total) by mouth daily. 03/20/2024 active atorvastatin (LIPITOR) 20 MG tablet Take 1 tablet (20 mg total) by mouth nightly. 03/19/2024 active apixaban (Eliquis) 5 MG tablet Take 1 tablet (5 mg total) by mouth 2 (two) times a day. active hydroCHLOROthiazide (HYDRODIURIL) 50 MG tablet Take 1 tablet (50 mg total) by mouth daily. active Multiple Vitamin (MULTIVITAMIN ADULT PO) Orally a ctive Problems Problem Status Onset Date Problem Type Date of Resoluti on Source Vision loss of right eye active EncounterDiagnosisAct HHCCT Optic nerve drusen, bilateral active EncounterDiagnosisAct [facility] Sector visual field defect of both eyes active EncounterDiagnosisAct HHCCT Encounters Encounter Type Encounter Reason Primary Diagnosis Location Date Ambulatory Sector or arcuate defects, bilateral Sector or arcuate defects, bilateral [facility] 04/20/2024 Care Team Organization Name Specialty Phone Email Start Date End Da te [facility] PCP Line [facility] 06/03/2024 06/10/2024 [facility] NO PCP Primary Care 04/03/2024
--- OUTSIDE RECORDS SUMMARY | 2024-10-20 10:28 | XMS_ITS | Clinical Summary ---
Author Organization [facility] Address [address] [place] [address] Care Team Providers Care Business Banking Relationship Manager Name Role Phone Pcp, No Primary Care Provider Unavailabl e Allergies No known active allergies Medications apixaban (Eliquis) 5 MG tablet Take 1 tablet (5 mg total) by mouth 2 (two) times a day. Active hydroCHLOROthia zide (HYDRODIURIL) 50 MG tablet Take 1 tablet (50 mg total) by mouth daily. Active fenofibrate micronized (LOFIBRA) 134 MG capsule Take 1 capsule (134 mg total) by mouth daily. 04/13/2024 Active atorvastatin (LIPITOR) 20 MG tablet Take 1 tablet (20 mg total) by mouth nightly. 03/19/2024 Active lisinopril (PRINIVIL,ZeSTR [place]) 40 MG tablet Take 1 tablet (40 mg total) by mouth daily. 03/20/2024 Active Multiple Vitamin (MULTIVITAMIN ADULT PO) Orally Active Family History Medical History Relation Name Comments [...] Recorded Sex Assigned at Not on file Legal Sex Male 1:15 PM EST Gender Identity Not on file Sexual Orientation Not on file Last Filed Vital Signs Vital Sign Reading Time Taken Comments Blood Pressure 122/81 04/20/2024 11:00 AM EST Pulse 71 04/20/2024 11:00 AM EST Temperature 36.4 C (97.5 F) 04/20/2024 11:00 AM EST Respiratory Rate - - Oxygen Saturation - [...] - Risk 60-74 years 1-dose series) 2016 COVID-19 Vaccine (2023-2 5 season) 2023 06/23/2020, 06/02/2020 Influenza Vaccine 10/23/2024 12/02/2019 Hepatitis B Vaccines Aged Out No long er eligible based on patient's age to complete this topic Insurance MEDICARE PART A & B Care Teams Business Banking Relationship Manager Relationship Specialty Start Date End Date Pcp, No PCP - General General Medicine 04/02/24
--- OUTSIDE RECORDS SUMMARY | 2024-10-20 10:28 | XMS_ITS | Patient Health Record ---
Author Organization [facility] Address [address] [place] [address] Care Team Providers Care Digital Content Coordinator Name Role Phone VIVIANA FOSS Primary Care Provider Phil Koenig Jr Unavailable Allergies Allergen (clinical drug ingredient) Drug/Non Drug Allergy documented on EMR Reaction Allergy Type Onset Date Status Seasonal (uncoded) Unknown Allergy A ctive Reason For Referral No Information Medications Medication SIG (Take, Route, Frequency, Duration) Notes [...] Active Lisinopril Active Fenofibrate Active hydroCHLOROthiazide Active Immunizations Vaccine Route Administration Date Status Comme nts Influenza Unknown 12/02/2019 Administered Problems Problem Type SNOMED Code ICD Code Onset Dates Problem Status W/U Status Risk Notes Problem 903101588 Colon cancer screening (Z12.11) Active confirmed Problem 701338419 taper printed circuit layout (curre nt) use of anticoagulants (Z79.01) Active confirmed Problem 532492108 Encounter for ot her preprocedural examination (Z01.818) Active confirmed Plan Of Treatment Future Test Test Name Order Date COLONOSCOPY 12/09/2013 COLONOSCOPY 03/07/2020 Insurance Providers Payer Name Payer Address Payer Phone Subscriber Number Group Number Insured Name Patient Relationship to Insured Coverage Start Date Coverage End Date [facility] [address] [place] [phone] [id number] SAMI RHODES Self - patient is the insured Medical (General) History Medical History History ICD Code colonoscopy 07/14/14, hyperpl astic polyp, five-year followup do to family history of colon polyps. hypertension elevated cholesterol enviromental allergies mini stroke pulmonary embolism - June 05, 2019 neuropathy Surgical History Surgery Date(Month/Year) tonsillectomy hernia repair
== END 2024-10-20 09:51 | disposition home or self-care (01) ==
LOC: HO.NEURO 09:50
PROVIDERS: PCP Nurse Practitioner Family; Visit Provider Nurse Practitioner Family
DX: G62.9 Polyneuropathy, unspecified (principal); M79.671 Pain in right foot; M79.672 Pain in left foot
CPT/HCPCS: 95886; 95913

== ENCOUNTER → 2024-10-20 09:54 | Outpatient (BNV) | payer MEDICARE, OTHER, SELFPAY | PROVIDERS: PCP Nurse Practitioner Family; Visit Provider Psychiatry & Neurology Neurology | DX: G62.89 Other specified polyneuropathies (principal) | CPT/HCPCS: 95886; 95913 ==

== ENCOUNTER 2024-12-14 12:01 | Outpatient (REF) | payer MEDICARE, OTHER, SELFPAY ==
[2024-12-14 18:44] LABS: Ferritin 191 ng/mL (20-250)
== END 2024-12-14 12:02 | disposition home or self-care (01) ==
LOC: HO.HKASLDS 12:01
PROVIDERS: PCP Nurse Practitioner Family; Visit Provider Psychiatry & Neurology Neurology
DX: G62.89 Other specified polyneuropathies (principal); G25.81 Restless legs syndrome
CPT/HCPCS: 36415; 82728; 99202

== ENCOUNTER 2024-12-14 12:01 | Outpatient (AMB) | payer MEDICARE, OTHER, SELFPAY ==
--- NOTE | 2024-12-14 12:18 | MHC.OFFVIS ---
Vital Signs 12/14/24 12:20 Height 5 ft 10 in Weight 271 lb 4 oz BMI 38.9 BP 128/70 Blood Pressure Location Rt brachial Position Sitting Pulse 69 Pulse Source Pulse Oximeter Pulse Oximetry (%) 96 Oxygen Delivery Method Room Air Intake Visit Reasons: I-SAFETY EQUIPMENT TESTER: Polyneuropathy, unspecified Intake Note: Unspecified polyneuropathy Hand Assembler For Puller Over Required: No Accompanied by: Self / Same As Patient Allergies seasonal Allergy (Unknown, Uncoded 12/14/24 12:19) Unknown Medication List - Last Reconciled 12/14/24 by Mali Palafox MD alfuzosin ER 10 mg PO DAILY apixaban (Eliquis) 2.5 mg PO BID atorvastatin 20 mg PO BEDTIME 90 days fenofibrate micronized 134 mg PO DAILY hydrochlorothiazide 50 mg PO QAM lisinopril 40 mg PO DAILY HPI Comments Details: 69y/o male comes for evaluation of neuropathy / He started noticing some tingling in his feet about 10 years ago.The tingling is worse at night and at rest. Moving around his feet helps. No pain , he describes it as discomfort. he has less symptoms when he walks around. He denies nay numbness , no back pain or neck pain. In the evening while watching TV the symptoms are worse. EMG showed moderate axonal neuropathy. No symptoms in hands No leg spasms. [facility] Medical History (Updated 12/14/24 @ 12:59 by Mali Palafox MD) Axonal neuropathy Restless legs syndrome (RLS) Fatty liver Squamous cell carcinoma of skin CVA (cerebral vascular accident) HTN (hypertension) Erectile dysfunction Bilateral pulmonary embolism (~05/2019) GERARDO (obstructive sleep apnea) Hyperlipidemia Surgical History Hx of cystoscopy H/O surgical biopsy (~01/24/23) Hx of tonsillectomy H/O colonoscopy History of umbilical hernia repair Family History Father No problems noted. Mother CAD (coronary artery disease) Afib Paternal Uncle Skin cancer (melanoma) Social History Household Members: Spouse Housing: House Housing Other:: patient refused Are you a primary cattle care worker to a significant other at home: No Do you presently have visiting nurse or other home services: No Alcohol intake: current Alcohol intake frequency: a few times a week Patient Tobacco Use Status: Never used Tobacco e-Cigarette/Vaping Use: Never Used Second Hand Smoke Exposure: No service: No Current occupational status: employed and retired Cognitive needs: No Hearing needs: No Vision needs: No Physical Exam Vital Signs: Last Vital Signs Pulse 69 12/14/24 12:20 BP 128/70 12/14/24 12:20 Pulse Ox 96 12/14/24 12:20 Oxygen Delivery Method Room Air 12/14/24 12:20 BMI result Body Mass Index 38.9 Const General: cooperative, healthy appearing, comfortable and no acute distress Nutritional Appearance: obese Orientation/consciousness: patient oriented x3 Eyes Pupils: Equal, round and reactive pupils present Neuro Other: hyporeflexia mild decreased PP in viky feet General: patient oriented x3, tone normal, moves all extremities and no focal motor deficits Cranial nerves: Yes Facial sensation intact/muscles of mastication intact, Yes Equal, round and reactive pupils present, Yes Bilaterally intact EOM present, Yes Nystagmus not present, Yes Normal facial strength present and Yes Midline tongue present Cognition (Neuro): normal cognition Gait exam (Neuro): Normal gait present Motor exam (neuro): 5/5 motor strength present throughout and Normal motor muscle tone present throughout Deep tendon reflexes (DTR's): Right triceps reflex intensity grade: 1+, Left triceps reflex intensity grade: 1+, Rt Biceps (C5, C6): 1+, Left biceps reflex intensity grade: 1+, Right brachioradialis reflex intensity grade: 1+, Left brachioradialis reflex intensity grade: 1+, Right patellar reflex intensity grade: 1+ and Left patellar reflex intensity grade: 1+ Coordination: [id number] test normal Assessment & Plan Assessment & Plan (1) Restless legs syndrome (RLS): Code(s): G25.81 - Restless legs syndrome Category: Medical (2) Axonal neuropathy: Code(s): G62.89 - Other specified polyneuropathies Category: Medical Plan I suggested gabapentin or requip for management of RLS - patient declined, suggetsed epsom salt soak nightly to relieve some symptoms Reviewed labs I will check his ferritin level Repeat EMG NCS in 1 year Orders: Orders Ferritin Today G62.9 - Polyneuropathy, unspecified Coding Level of Care Code New Pt Level 4 (17899) Diagnoses Restless legs syndrome (RLS) G25.81 Axonal neuropathy G62.89
[2024-12-14 12:20] VITALS: BP 128/70; PULSE 69; O2SAT 96; BMI 38.9
== END 2024-12-14 13:02 | disposition home or self-care (01) ==
PROVIDERS: PCP Nurse Practitioner Family; Visit Provider Psychiatry & Neurology Neurology
DX: G25.81 Restless legs syndrome (principal); G62.89 Other specified polyneuropathies
CPT/HCPCS: 99204

== ENCOUNTER 2025-02-25 09:04 | Outpatient (REF) | payer MEDICARE, OTHER, SELFPAY ==
--- OUTSIDE RECORDS SUMMARY | 2025-02-25 09:53 | XMS_ITS | Clinical Summary ---
Author Organization [facility] Address [address] [place] [address] Care Team Providers Care Distribution A Class Lineman Name Role Phone Pcp, No Primary Care [...] Health Maintenance Due Date Last Done Comments Advance Care Planning 1955 Hepatitis C Virus Screening 1955 DTaP/Tdap/Td Vaccines (1 - Tdap) 10/11/1975 Colonoscopy 2001 Pneumococcal Vaccines 50+ (1 of 1 - PCV) 2006 RSV Vaccine 50 years and older and Patients (1 - Risk 50-74 years 1-dose series) 2006 Zoster (Shingles) Vaccine (1 of 2) 2006 Influenza Vaccine 10/23/2024 12/02/2019 COVID-19 Vaccine (3 - 2024-2 6 season) 2024 06/23/2020, 06/02/2020 Hepatitis B Vaccines Aged Out No long er eligible based on patient's age to complete this topic Insurance MEDICARE PART A & B Care Teams Distribution A Class Lineman Relationship Specialty Start Date End Date Pcp, No PCP - General General Medicine 04/02/24
--- OUTSIDE RECORDS SUMMARY | 2025-02-25 09:53 | XMS_ITS | Patient Health Record ---
Author Organization [facility] Address [address] [place] [address] Care Team Providers Care Blood Bank Calendar Control Clerk Name Role Phone VIVIANA FOSS Primary Care Provider Phil Koenig Jr Unavailable Allergies Allergen (clinical drug ingredient) Drug/Non Drug Allergy documented on EMR Reaction Allergy Type Onset Date Status Seasonal (uncoded) Unknown Allergy A ctive Reason For Referral No Information Medications Medication SIG (Take, Route, Frequency, Duration) Notes Start Date End Date Status Simvastatin 20 MG Tablet 1 tablet in the evening Orally Once a day Active Aspirin 81 MG Tablet Chewable 1 tablet O rally Once a day Active Multivitamin Liquid Orally Active Eliquis Active MiraLax (colon prep) 8.3 oun ce ((238) grams mixed with Gatorade or Crystal Light orally begin at 5:00 p.m. 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 [employer] Problems Problem Type SNOMED Code ICD Code Onset Dates Problem Status W/U Status Risk Notes Problem Colon cancer screening (235329932) Colon cancer screening (Z12.11) Active confirmed Problem Long-term current use of anticoagulant (895058013) residential (current) use of anticoagulants (Z79.01) Active confirmed Problem Pre-procedure evaluation check (563231793) Encounter for other preprocedural examination (Z01.818) Active confirmed Plan Of Treatment Future Test Test Name Order Date COLONOSCOPY 12/09/2013 COLONOSCOPY 03/07/2020 Insurance Providers Payer Name Payer Address Payer Phone Subscriber Number Group Number Insured Name Patient Relationship to Insured Coverage Start Date Coverage End Date [facility] [address] [place] [phone] [id number] SAMI RHODES Self - patient is the insured Medical (General) History Medical History History ICD Code colonoscopy 07/14/14, hyperpl astic polyp, five-year followup do to family history of colon polyps. hypertension elevated cholesterol enviromental allergies mini stroke pulmonary embolism - June 05, 2019 neuropathy Surgical History Surgery Date(Month/Year) tonsillectomy hernia repair
[2025-02-25 13:00] LABS: MANUAL DIFF FLAG NO
[2025-02-25 13:06] LABS: Hematocrit 39.5 % (42.0-52.0); Hemoglobin 13.2 g/dl (14.0-18.0); Imm Gran Abs Auto 0.01 X10*3/uL (0.00-0.03); Imm Gran Pct Auto 0.2 % (0.0-0.4); Lymphocytes Absolute Auto 1.8 X10*3/uL (1.2-4.9); Mean Corpuscular HGB Conc 33.4 g/dl (31.0-36.0); Mean Corpuscular Hemoglobin 29.4 pg (27.0-33.0); Mean Corpuscular Volume 88.0 fL (80.0-98.0); NRBC Abs Auto 0.000 X10*3/uL (0.0-0.012); NRBC Pct Auto 0.0 /100WBC (0.0-0.2); Platelet Count 215 X10*3/uL (160-400); Red Blood Count 4.49 X10*6/uL (4.60-5.80); White Blood Count 5.8 X10*3/uL (4.8-10.8)
[2025-02-25 13:24] LABS: Alanine Aminotransferase 43 U/L (0-40); Albumin Level 4.2 g/dL (3.5-5.0); Alkaline Phosphatase 32 U/L (39-117); Anion Gap 11 (12-20); Aspartate Amino Transferase 32 U/L (5-37); Blood Urea Nitrogen 19 mg/dL (9-16); Calcium 9.2 mg/dL (8.4-10.2); Carbon Dioxide 27 mmol/L (22-29); Chloride 107 mmol/L (96-108); Cholesterol 136 mg/dL (<200); Estimated Glomerular Filt Rate > 60; HDL Cholesterol 33 mg/dL (>40); Potassium 3.8 mmol/L (3.3-5.1); Sodium 141 mmol/L (135-145); Total Protein 6.5 g/dL (6.5-8.0); Triglycerides 88 mg/dL (<150)
[2025-02-25 13:25] LABS: Appearance Urine Clear; Glucose Urine UA Negative (Negative); PH 7.5 (5.0-9.0); Specific Gravity - Urine 1.015 (1.005-1.025)
== END 2025-02-25 09:05 | disposition home or self-care (01) ==
LOC: HO.HMGCLDS 09:04
PROVIDERS: PCP Nurse Practitioner Family; Visit Provider Nurse Practitioner Family
DX: Z12.5 Encounter for screening for malignant neoplasm of prostate (principal); I10 Essential (primary) hypertension; E55.9 Vitamin D deficiency, unspecified
CPT/HCPCS: 36415; 80053; 80061; 81003; 82306; 84153; 84443; 85025

== ENCOUNTER 2025-03-02 08:22 | Outpatient (AMB) | payer MEDICARE, OTHER, SELFPAY ==
--- NOTE | 2025-03-02 08:28 | A.OFFPC_ITS ---
Vital Signs 03/02/25 08:29 Height 5 ft 10 in Weight 270 lb BMI 38.7 BP 118/60 Blood Pressure Location Lt brachial Position Sitting Respiration 16 Pulse 69 Pulse Source Pulse Oximeter Pulse Oximetry (%) 98 Oxygen Delivery Method Room Air Intake Visit Reasons: 6m follow up Pit Manager Required: No Accompanied by: Self / Same As Patient Allergies seasonal Allergy (Unknown, Uncoded 12/14/24 12:19) Unknown Tobacco use date assessed: 03/02/25 Fall risk assessment: No Falls in past year Last assessed Fall Risk: 03/02/25 Dental Screening Dental Screen Date: 03/02/25 Did you have a dental visit in the last 12 months?: Yes Did you have a dental problem in the last 6 months where you did not have access to dental care?: No Was dental information given to patient?: Patient has dentist HPI 6m follow up HPI Details Chief Complaint The patient presents for a 6-month follow-up visit. History of Present Illness The patient is a 69-year-old male presenting for a 6-month follow-up visit. He is being followed by neurology for restless leg syndrome and neuropathy, and he reports that using Epsom salt helps his symptoms. He also has a history of ongoing deep vein thrombosis and pulmonary emboli, for which he is being followed by hematology/oncology. He reports stiffness in his hands and fingers, especially in the morning, describing them as being in a flexed position. The patient has a history of arthritis and has declined imaging for his hand symptoms at this time. He has a history of a fatty liver. Social History Health Maintenance - [facility] Review of Systems - General: Reports doing well overall. - Cardiovascular: Denies chest pain. - Respiratory: Denies shortness of breat h. - Gastrointestinal: Denies abdominal ricky n, blood in stool, constipation, and diarrhea. - Musculoskeletal: Reports very stiff jane nds and fingers, especially in the morning, describing them as being in a flexed position. - Neurological: Reports restless leg syn drome and neuropathy. Physical Exam General: Cooperative, healthy appearing, comfortable, no acute distress and well developed, obese Orientation: Patient oriented x3 Limitations: No limitations Head: Normal to inspection Ears: Hearing grossly normal bilaterally Nose: Normal external nose present Face and sinus: Normal facial exam Eyes: Appearance normal, both eyes and all related structures Neck: Normal visual inspection and Yes full ROM Respiratory: Normal respiratory effort and able to speak in complete sentences. Clear to auscultation bilaterally Cardiovascular: Regular rate and rhythm. Normal S1 and S2 GI: Normal to inspection. Soft to palpation and nontender Skin: No rashes or lesions noted Neuro: Patient oriented x3 Extremities: Normal to inspection, no edema bilaterally Results - Labs: Recent labs showed a slightly el evated liver enzyme and normal kidney function. Plan 1. Hand Stiffness/Arthritis The patient complains of very stiff hands and fingers in the morning, consistent with arthritis. He was advised to use warm water on his hands every morning to help with the stiffness. The patient declined any imaging at this time, and the condition will continue to be monitored. 2. Deep Vein Thrombosis And Pulmonary Em bolism The patient is being followed by hematology/oncology for ongoing deep vein thrombosis (DVT) and pulmonary emboli. 3. Restless Legs Syndrome And Neuropathy The patient is followed by neurology for restless leg syndrome and neuropathy. He reports that using Epsom salt helps his symptoms. 4. Fatty Liver And Elevated Liver Enzyme The patient has a known history of fatty liver, and recent labs showed a slightly elevated liver enzyme. This will continue to be monitored. Discussion Notes I discussed with the patient his report of significant hand and finger stiffness in the mornings, which is likely due to arthritis. I encouraged him to use warm water on his hands every morning to improve mobility. The patient declined any hand imaging at this time, and we agreed to continue monitoring his symptoms. Patient Instructions - To help with the stiffness in your davis ds and fingers, soak them in warm water every morning to get them going. - Continue to use Epsom salt as it seems to be helping with your restless legs and neuropathy. - Continue to follow up with your hemato logy/oncology doctor for your blood clots and with your neurology doctor for your restless legs and neuropathy. [facility] Medical History (Updated 03/02/25 @ 09:13 [facility] Axonal neuropathy Restless legs syndrome (RLS) Fatty liver Squamous cell carcinoma of skin CVA (cerebral vascular accident) HTN (hypertension) Erectile dysfunction Bilateral pulmonary embolism (~05/2019) GERARDO (obstructive sleep apnea) Hyperlipidemia Surgical History Hx of cystoscopy H/O surgical biopsy (~01/24/23) Hx of tonsillectomy H/O colonoscopy History of umbilical hernia repair Family History Father No problems noted. Mother CAD (coronary artery disease) Afib Paternal Uncle Skin cancer (melanoma) Social History Household Members: Spouse Housing: House Housing Other:: patient refused Are you a primary childcare center administrator to a significant other at home: No Do you presently have visiting nurse or other home services: No Alcohol intake: current Alcohol intake frequency: a few times a week Patient Tobacco Use Status: Never used Tobacco e-Cigarette/Vaping Use: Never Used Second Hand Smoke Exposure: No service: No Current occupational status: employed and retired Cognitive needs: No Hearing needs: No Vision needs: No Questionnaire Thrive Questionnaire Date Thrive assessed: 08/27/24 I am a: Patient What is your living situation today?: I choose not to answer this question Within the past 12 months, did the food you bought not last and you didn't have the money to get more?: I choose not to answer this question Within the past 12 months, did you worry whether your food would run out before you got money to buy more?: I choose not to answer this question Do you have trouble paying for medicines?: I choose not to answer this question Do you have trouble getting transportation to medical appointments?: I choose not to answer this question Do you have trouble paying your heating and electricity bill?: I choose not to answer this question Do you have trouble taking care of your child, family member or friend?: I choose not to answer this question Do you have trouble with day-to-day activities such as bathing, preparing meals, shopping, managing finances, etc.?: I choose not to answer this question Are you currently unemployed and looking for a job?: I choose not to answer this question Are you interested in more education?: I choose not to answer this question Please select the resources that you would like help with: None Currently or been in a relationship where the following occur: I choose not to answer THRIVE Score: 0 DIEGO-7 AMB Questionnaire DIEGO-7 Date DIEGO - 7 assessed: 08/27/24 Source: Developed by Drs. Dieudonne Alonso, Bev Vu, Julien Schofield and colleagues, with an educational luciano from [employer]. Physical exam (Primary Care) Vital Signs: Last Vital Signs Pulse 69 03/02/25 08:29 Resp 16 03/02/25 08:29 BP 118/60 03/02/25 08:29 Pulse Ox 98 03/02/25 08:29 Oxygen Delivery Method Room Air 03/02/25 08:29 BMI result Body Mass Index 38.7 Tobacco/Smoking Status: Tobacco use Status Tobacco use date assessed 03/02/25 03/02/25 08:31 Patient Tobacco Use Status Never used Tobacco 03/02/25 08:31 e-Cigarette/Vaping Use Never Used 03/02/25 08:31 Thrive Assessment: Date of Thrive Assessment Date Thrive assessed 08/27/24 03/02/25 08:31 Currently or been in a relationship where the following occur: I choose not to answer Coding Level of Care Code Est Pt Level 3 (50162) Diagnoses Pulmonary emboli I26.99 HTN (hypertension) I10 Axonal neuropathy G62.89 Fatty liver K76.0 Finger joint stiff M25.649 Assessment & Plan Assessment & Plan (1) Pulmonary emboli: Code(s): I26.99 - Other pulmonary embolism without acute cor pulmonale Category: Medical (2) HTN (hypertension): Code(s): I10 - Essential (primary) hypertension Category: Medical (3) Axonal neuropathy: Code(s): G62.89 - Other specified polyneuropathies Category: Medical (4) Fatty liver: Code(s): K76.0 - Fatty (change of) liver, not elsewhere classified Category: Medical (5) Finger joint stiff: Code(s): M25.649 - Stiffness of unspecified hand, not elsewhere classified Category: Medical Plan .
[2025-03-02 08:29] VITALS: BP 118/60; PULSE 69; RESP 16; O2SAT 98; BMI 38.7
== END 2025-03-02 09:08 | disposition home or self-care (01) ==
LOC: HO.HMCC 08:23
PROVIDERS: PCP Nurse Practitioner Family; Visit Provider Nurse Practitioner Family
DX: I26.99 Other pulmonary embolism without acute cor pulmonale (principal); I10 Essential (primary) hypertension; G62.89 Other specified polyneuropathies; K76.0 Fatty (change of) liver, not elsewhere classified; M25.649 Stiffness of unspecified hand, not elsewhere classified

== ENCOUNTER → 2025-03-02 08:22 | Outpatient (BNVA) | payer MEDICARE, OTHER, SELFPAY | PROVIDERS: PCP Nurse Practitioner Family; Visit Provider Nurse Practitioner Family | DX: I26.99 Other pulmonary embolism without acute cor pulmonale (principal); I10 Essential (primary) hypertension; G62.89 Other specified polyneuropathies; K76.0 Fatty (change of) liver, not elsewhere classified | CPT/HCPCS: 99212 ==